=== PATIENT | male | born 1930 | race Caucasian/White ===

== ENCOUNTER 2016-11-16 17:35 | Inpatient (IN) | payer MEDICARE, BC ==
[~2016-11-16] VITALS: Ht 177.8 cm; Wt 66.0 kg
[2016-11-16] MEDS ORDERED: SODIUM CHLORIDE 0.9% 1L BAG IV* STA (17:59)
[2016-11-16 18:36] LABS: ADD SCAN DIFF NO
[2016-11-16 18:38] LABS: BASOPHIL # 0.1 10^3/ul (0.0-0.1); BASOPHILS % 0.8 % (0.0-2.0); EOSINOPHILS # 0.2 10^3/ul (0.0-0.5); EOSINOPHILS % 1.6 % (0.0-7.0); HEMATOCRIT 39.2 % (42.0-52.0); HEMOGLOBIN 12.8 g/dl (14.0-18.0); LYMPHOCYTES # 1.6 10^3/ul (0.8-2.9); LYMPHOCYTES % 15.7 % (15.0-51.0); MEAN CORPUSCULAR HEMOGLOBIN 30.3 pg (29.0-33.0); MEAN CORPUSCULAR HGB CONC 32.7 g/dl (32.0-37.0); MEAN CORPUSCULAR VOLUME 92.7 fl (82.0-101.0); MONOCYTE # 0.8 10^3/ul (0.3-0.9); NEUTROPHIL # 7.3 10^3/ul (1.6-7.5); NEUTROPHILS % 73.6 % (39.0-77.0); PLATELET COUNT 302 10^3/UL (140-415); RED BLOOD COUNT 4.23 10^6/ul (4.70-6.10); RED CELL DISTRIBUTION WIDTH 13.5 % (11.5-14.5); WHITE BLOOD COUNT 9.9 10^3/ul (4.8-10.8)
[2016-11-16 18:39] LABS: ADD UMIC NO; URINE BILIRUBIN (Dip) NEGATIVE (NEGATIVE); URINE BLOOD (Dip) NEGATIVE (NEGATIVE); URINE COLOR LT. YELLOW (YELLOW); URINE GLUCOSE (Dip) NEGATIVE (NEGATIVE); URINE KETONES (Dip) 15 (NEGATIVE); URINE LEUKOCYTE ESTERASE (Dip) NEGATIVE (NEGATIVE); URINE NITRITE (Dip) NEGATIVE (NEGATIVE); URINE TOTAL PROTEIN (Dip) NEGATIVE (NEGATIVE); URINE UROBILINOGEN (Dip) 0.2 E.U./dL (0.1-1.0)
--- NOTE | 2016-11-16 18:44 | RADRPT ---
PROCEDURE: XR Chest. CLINICAL INDICATION: Shortness of breath. Sepsis TECHNIQUE: A single portable view of the chest was obtained. COMPARISON: None FINDINGS: The aorta is tortuous and atherosclerotic. The cardiomediastinal silhouette is otherwise within nor mal limits. Hyperinflation is seen. No dense consolidation or pleural effusion is seen. Mild bibasi lar atelectasis is seen. The soft tissues and osseous structures demonstrate benign age related sen escent changes. IMPRESSION: Hyperinflation. Mild bibasilar atelectasis. RPTAT: HPNM Physician Collins Date Time Electronically viewed and signed by Physician Collins on 11/16/2016 18:44 /
[2016-11-16 18:53] LABS: INR 0.93; PROTIME 12.5 Sec (12.2-14.2)
[2016-11-16 18:54] LABS: PARTIAL THROMBOPLASTIN TIME 34.6 Sec (25.0-35.0)
[2016-11-16 18:58] LABS: ALANINE AMINOTRANSFERASE 25 IU/L (13-69); ALBUMIN 4.3 g/dl (3.3-4.9); ALBUMIN/GLOBULIN RATIO 1.19; ALKALINE PHOSPHATASE 134 IU/L (42-121); ANION GAP 14 (8-16); ASPARTATE AMINO TRANSFERASE 31 IU/L (15-46); BILIRUBIN,INDIRECT 0.9 mg/dl (0-1.1); BILIRUBIN,TOTAL 0.9 mg/dl (0.2-1.3); BLOOD UREA NITROGEN 27 mg/dl (7-20); CALCIUM 10.5 mg/dl (8.4-10.2); CARBON DIOXIDE 27 mmol/L (21-31); CHLORIDE 104 mmol/L (97-110); GLUCOSE 96 mg/dl (70-220); POTASSIUM 4.4 mmol/L (3.5-5.1); SODIUM 141 mmol/L (135-144); TOTAL PROTEIN 7.9 g/dl (6.1-8.1)
[2016-11-16 19:11] LABS: TROPONIN-I < 0.012 ng/ml (0.00-0.12)
[2016-11-16] MEDS ORDERED: SOD CHLORIDE 0.9% 1,000 ML IV SCH (19:16)
--- NOTE | 2016-11-16 19:19 | ERA ---
ER Documentation Chief Complaint Date/Time DATE: 11/16/16 TIME: 19:18 Chief Complaint increased weakness away from baseline per facility HPI This 86-year-old male presents to the emergency room by ambulance for increased weakness, decreased appetite, and advanced dementia. History is unobtainable from the patient secondary to his clinical condition. According to his who is at bedside this patient has severe dementia and she has been trying to secure the patient at home. She states that the patient has been declining cognitively and has had recent hallucinations. She states that she is no longer able to take care of him and she has no support system at home to help her out. The patient's is very pleasant elderly female who is concerned for her 's well-being and brought the patient in for evaluation. ROS All systems reviewed and are negative except as per history of present illness. Medications Home Meds No Active Prescriptions or Reported Meds Allergies Allergies: Coded Allergies: aspirin (Unverified Allergy, Unknown, 11/16/16) PMhx/Soc History of Surgery: Yes (bilateral tkr, hernia's x 3 ) Anesthesia Reaction: No Hx Neurological Disorder: No Hx Respiratory Disorders: No Hx Cardiac Disorders: No Hx Psychiatric Problems: No Hx Miscellaneous Medical Probl: Yes (alzheimer's) Hx Alcohol Use: No (previous user) Hx Substance Use: No Hx Tobacco Use: Yes Smoking Status: Former smoker Physical Exam Vitals Vital Signs Date Time Temp Pulse Resp B/P Pulse Ox O2 Delivery O2 Flow Rate FiO2 11/16/16 17:54 98.0 74 18 187/107 96 Physical Exam INITIAL VITAL SIGNS: Reviewed by me GENERAL: The patient is well developed and appropriate for usual state of health in no apparent distress HEENT: Dry mucous membranes pupils equal, round, and reactive to light. EOMI. There is no scleral icterus. NECK: C-spine is soft and supple, there is no meningismus. There is no cervical lymphadenopathy. LUNGS: Clear to auscultation bilaterally. There are no rales, wheezes or rhonchi. HEART: Regular rate and rhythm, no murmurs, clicks, rubs or gallops. ABDOMEN: Soft, non-tender, non-distended. There are bowel sounds in all four quadrants. No rebound or guarding. EXTREMITIES: There is no peripheral cyanosis or edema. No focal swelling or erythema. NEUROLOGICAL: The patient moves all four extremities with 5/5 strength. Cranial nerves II - XII are intact.Alert and oriented to person and place SKIN: There is no apparent rash or petechiae. HEME/LYMPHATIC: There is no evidence of excessive bruising or lymphedema. PSYCHIATRIC: The patient does not appear anxious or depressed. Result Diagram: 11/16/16181411/16/161814 Results 24 hrs Laboratory Tests Test 11/16/16 18:00 11/16/16 18:15 Urine Color LT. YELLOW Urine Clarity CLEAR Urine pH 5.5 Urine Specific Neola 1.020 Urine Ketones 15 Urine Nitrite NEGATIVE Urine Bilirubin NEGATIVE Urine Urobilinogen 0.2 E.U./dL Urine Leukocyte Esterase NEGATIVE Urine Hemoglobin NEGATIVE Urine Glucose NEGATIVE% Urine Total Protein NEGATIVE White Blood Count 9.910^3/ul Red Blood Count 4.2310^6/ul Hemoglobin 12.8g/dl Hematocrit 39.2% Mean Corpuscular Volume 92.7fl Mean Corpuscular Hemoglobin 30.3pg Mean Corpuscular Hemoglobin Concent 32.7g/dl Red Cell Distribution Width 13.5% Platelet Count 41754^3/UL Mean Platelet Volume 10.0fl Neutrophils % 73.6% Lymphocytes % 15.7% Monocytes % 8.0% Eosinophils % 1.6% Basophils % 0.8% Nucleated Red Blood Cells % 0.0/100WBC Neutrophils # 7.310^3/ul Lymphocytes # 1.610^3/ul Monocytes # 0.810^3/ul Eosinophils # 0.210^3/ul Basophils # 0.110^3/ul Nucleated Red Blood Cells # 0.010^3/ul Prothrombin Time 12.5Sec Prothrombin Time Ratio 1.0 INR International Normalized Ratio 0.93 Activated Partial Thromboplast Time 34.6Sec Sodium Level 141mmol/L Potassium Level 4.4mmol/L Chloride Level 104mmol/L Carbon Dioxide Level 27mmol/L Anion Gap 14 Blood Urea Nitrogen 27mg/dl Creatinine 0.70mg/dl Glucose Level 96mg/dl Lactic Acid Level 1.3mmol/L Calcium Level 10.5mg/dl Total Bilirubin 0.9mg/dl Direct Bilirubin 0.00mg/dl Indirect Bilirubin 0.9mg/dl Aspartate Amino Transf (AST/SGOT) 31IU/L Alanine Aminotransferase (ALT/SGPT) 25IU/L Alkaline Phosphatase 134IU/L Troponin I < 0.012ng/ml Total Protein 7.9g/dl Albumin 4.3g/dl Globulin 3.60g/dl Albumin/Globulin Ratio 1.19 Current Medications Medications (Trade) Dose Ordered Sig/Lawson Route PRN Reason Start Time Stop Time Status Last Admin Dose Admin Sodium Chloride 2250 ml 2,250 ml BOLUS OVER 2 HOURS STAT IV* 11/16/16 17:59 11/16/16 18:00 DC 11/16/16 18:28 Sodium Chloride (NS) 1,000 ml @ 80 mls/hr [id number] IV 11/16/16 19:16 11/17/16 07:45 Ondansetron HCl (Zofran Inj) 4 mg BRIDGE ORDER PRN IV NAUSEA AND/OR VOMITING 11/16/16 19:30 11/17/16 19:29 Acetaminophen (Tylenol Tab) 650 mg ER BRIDGE PRN PO MILD PAIN/FEVER 11/16/16 19:30 11/17/16 19:29 Procedures/MDM EKG: Rate/Rhythm: [Normal Sinus Rhythm] QRS, ST, T-waves: [No changes consistent w/ acute ischemia] Impression: [No evidence of ischemia or arrhythmia] Chest X-ray 1V Interpreted by me: Soft Tissue: No acute abnormalities Bones: No acute abnormalities Mediastinum/Cardiac Silhouette/Lungs: [No acute abnormalities] This 86-year-old male presents to the emergency room after being brought in by ambulance from his home for evaluation of increased weakness, decreased cognitive function, and hallucinations. 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 She states that over the past week this patient has been hallucinating, has not been any food, she states that she was concerned because she is no longer able to take care of him. She does not have a support system at home and has no family members to help out. When I evaluated this patient he was alert and oriented to person and place only. The patient did have urine on himself, we cleaned the patient and I feel this patient will need placement in a snf or custodial facility. I have spoken with the in regards to this and she states that she is in agreement that she can no longer manage his patient's care at home. This patient will be placed in for admission at this time to her panel physician, Dr. monson Departure Diagnosis: Primary Impression: Advanced dementia Additional Impressions: Generalized weakness Normocytic anemia Prerenal azotemia Failure to thrive in adult Condition: Stable SO BENZ DO November 16, 2016 19:19
[2016-11-16] MEDS ORDERED: ACETAMINOPHEN 325 MG TAB PO PRN (19:30)
[2016-11-16] MEDS ORDERED: ONDANSETRON 4 MG INJ IV PRN ×2 (19:30→23:00)
[2016-11-16 20:25] VITALS: TEMP 97.7
[2016-11-16 21:11] VITALS: BMI 21.5
[2016-11-16 21:14] VITALS: BP 134/85; RESP 19
[2016-11-16 21:47] VITALS: Ht 177.8 cm; Wt 66.0 kg
[2016-11-16] MEDS ORDERED: NACL 0.9% 3 ML SYG IV SCH (23:00)
[2016-11-16] MEDS ORDERED: ACETAMINOPHEN 650 MG SUPP PR PRN (23:00)
--- NOTE | 2016-11-16 23:21 | HP ---
Date/Time of Note Date/Time of Note DATE: 11/16/16 TIME: 23:09 Assessment/Plan VTE Prophylaxis VTE Prophylaxis Intervention: LMWH Assessment/Plan Chief Complaint/Hosp Course This is a 86-year-old male being admitted to the [facility] floor for: #1 failure to thrive: Likely secondary to worsening dementia/Alzheimer's for the last 10 years. Patient has been under the care of his as he is not able to perform all his ADLs by himself. Over the last few days does report that he is also been hallucinating. There are no active signs of any infection at this point. She denies him having any fevers. Denies any abnormal smell in his urine. Chest x-ray is within normal values. At the current time the laboratory values all appear within normal values. UA is within normal values. Urine culture was sent. Will provide the patient IV fluid hydration at this time. We will keep the patient n.p.o. until he can pass swallow eval. dietary consult. does state that he normally does not have any issues with eating but he has had a decreased appetite over the last few days. We will also consult case management and social work to assist us in the family in finding placement for the patient as it is difficult for the patient to perform his ADLs and for his to manage his care. We will also consider palliative care consult for any further input. #2 Alzheimer's: It has been ongoing and worsening over the last 10 years. Patient is unable to perform his ADLs by himself. He is requiring the assistance of his for the last 10 years. Please see #1 #3 DVT and GI prophylaxis Lovenox, famotidine #4 CODE STATUS: DNR. Patient's son Rich who is the POA was present as well at the bedside he does state that the patient has an advanced directive where he stated he would like to be DNR. They will bring in the paperwork as well. Problems: HPI/ROS Admit Date/Time Admit Date/Time November 16, 2016 at 19:17 Hx of Present Illness Chief complaint: Increased weakness, decreased appetite This 86-year-old male presents to the emergency room by ambulance for increased weakness, decreased appetite, and advanced dementia. History is unobtainable from the patient secondary to his clinical condition. According to his who is at bedside this patient has severe dementia and she has been trying to secure the patient at home. She states that the patient has been declining cognitively and has had recent hallucinations. She states that she is no longer able to take care of him and she has no support system at home to help her out. The patient's is very pleasant elderly female who is concerned for her 's well-being and brought the patient in for evaluation. Allergies: Aspirin Medications: None ROS Subjective hx not possible: pt non-verbal, other (Secondary to clinical condition) PMH/Family/Social Past Medical History Alzheimer's Past Surgical History Bilateral knee replacement, hernia repair Social History Alcohol Use: other (Patient was a former drinker 10 years ago) Smoking Status: Former smoker Exam/Review of Systems Vital Signs Vitals Vital Signs Date Time Temp Pulse Resp B/P Pulse Ox O2 Delivery O2 Flow Rate FiO2 11/16/16 21:14 97.5 87 19 134/85 91 11/16/16 20:25 Room Air Exam Exam General: Patient is a elderly patient sleeping in bed easily arousable. Does not appear in acute distress HEENT: Atraumatic, normocephalic. The pupils are equal, round and reactive. Extraocular motor are intact Neck: Supple with full range of motion. No rigidity or meningismus Chest: Nontender Lungs: Clear to auscultation bilaterally no crackles rales or wheezing Heart: Normal S1-S2, Regular rhythm and rate. Abdomen: Soft , nontender, nondistended , bowel sounds are present. No guarding no rebound tenderness , No masses or organomegaly. Extremities: Normal to inspection, no edema no cyanosis Neurologic: Patient is alert and oriented 2, he has baseline confusion secondary to his underlying dementia according to his . Additional Comments PROCEDURE: XR Chest. CLINICAL INDICATION: Shortness of breath. Sepsis TECHNIQUE: A single portable view of the chest was obtained. COMPARISON: None FINDINGS: The aorta is tortuous and atherosclerotic. The cardiomediastinal silhouette is otherwise within normal limits. Hyperinflation is seen. No dense consolidation or pleural effusion is seen. Mild bibasilar atelectasis is seen. The soft tissues and osseous structures demonstrate benign age related senescent changes. IMPRESSION: Hyperinflation. Mild bibasilar atelectasis. Labs Result Diagram: 5/17/17 1815 5/17/17 1815 Medications Medications Current Medications Sodium Chloride 1,000 ml @ 80 mls/hr [id number] IV Last administered on t 21:00; Admin Dose 80 MLS/HR; Start 11/16/16 at 19:16; Stop 11/17/16 at 07: 45 Sodium Chloride (NS) 1,000 ml @ 70 mls/hr [id number] IV ; Start 11/16/16 at 22:56 ; Status UNV Ondansetron HCl (Zofran Inj) 4 mg Q6H PRN IV NAUSEA AND/OR VOMITING; Start at 23:00; Status UNV Acetaminophen (Tylenol Supp) 650 mg Q6H PRN [place] PAIN LEVEL 1-3 OR FEVER; Start 11/16/16 at 23:00; Status UNV Famotidine (Pepcid Iv) 20 mg Q12 IV ; Start 11/16/16 at 23:00; Status UNV Enoxaparin Sodium (Lovenox) 40 mg DAILY SC ; Start 11/17/16 at 09:00; Status UNV NEPTALI OLMSTEAD November 16, 2016 23:19
[2016-11-16] MEDS: SOD CHLORIDE 0.9% 1,000 ML IV SCH (23:22)
[2016-11-16] MEDS: FAMOTIDINE 20 MG INJ IV SCH (23:26)
[2016-11-17 05:06] LABS: ADD SCAN DIFF NO
[2016-11-17 05:12] LABS: BASOPHIL # 0.1 10^3/ul (0.0-0.1); EOSINOPHILS # 0.2 10^3/ul (0.0-0.5); EOSINOPHILS % 2.3 % (0.0-7.0); HEMATOCRIT 36.8 % (42.0-52.0); HEMOGLOBIN 12.1 g/dl (14.0-18.0); LYMPHOCYTES # 1.6 10^3/ul (0.8-2.9); LYMPHOCYTES % 17.6 % (15.0-51.0); MEAN CORPUSCULAR HEMOGLOBIN 30.3 pg (29.0-33.0); MEAN CORPUSCULAR HGB CONC 32.9 g/dl (32.0-37.0); MEAN PLATELET VOLUME 10.2 fl (7.4-10.4); MONOCYTE # 0.8 10^3/ul (0.3-0.9); MONOCYTES % 9.4 % (0.0-11.0); NEUTROPHIL # 6.2 10^3/ul (1.6-7.5); NEUTROPHILS % 69.4 % (39.0-77.0); PLATELET COUNT 273 10^3/UL (140-415); RED CELL DISTRIBUTION WIDTH 13.3 % (11.5-14.5); WHITE BLOOD COUNT 8.9 10^3/ul (4.8-10.8)
[2016-11-17 05:58] LABS: POTASSIUM 3.7 mmol/L (3.5-5.1)
[2016-11-17 06:00] LABS: CREATININE 0.63 mg/dl (0.61-1.24)
[2016-11-17 06:01] LABS: CALCIUM 9.3 mg/dl (8.4-10.2)
[2016-11-17 08:40] VITALS: BP 164/71; RESP 18
[2016-11-17] MEDS: FAMOTIDINE 20 MG INJ IV SCH ×2 (09:37→20:28)
[2016-11-17] MEDS: ENOXAPARIN 40 MG/0.4 ML SYG SC SCH (09:37)
[2016-11-17] MEDS: SOD CHLORIDE 0.9% 1,000 ML IV SCH ×3 (09:48→09:52)
[2016-11-17] MEDS ORDERED: hydrALAzine 20 MG INJ IV PRN (10:00)
--- NOTE | 2016-11-17 11:20 | PN ---
DATE: 11/17/2016 SUBJECTIVE DATA: The patient remains pleasantly confused. Blood pressure slightly on the higher side. OBJECTIVE DATA: VITAL SIGNS: Temperature 97.2, pulse rate 67, respiratory rate 18, blood pressure 164/71, oxygen saturation 98% on room air. GENERAL: This is an elderly male lying in bed in no apparent distress. HEENT: Head normocephalic and atraumatic. Eyes: Anicteric sclerae. Conjunctivae clear. ENT: Nasal septum is midline. Oral mucosa is dry. NECK: Supple. No JVD noticed. RESPIRATORY: Bilaterally diminished breath sounds. No adventitious breath sounds heard. No use of accessory muscles of respiration. CARDIAC: Regular rate and rhythm. S1 and S2. ABDOMEN: Soft, nontender and nondistended. Bowel sounds positive in all 4 quadrants. GENITOURINARY: The patient has a Bass catheter in place. EXTREMITIES: No cyanosis, no clubbing. Bilateral diminished pedal pulses. Bilateral toenails onychomycosis. NEUROLOGIC: The patient is awake and alert. Oriented to himself. LABORATORY AND DIAGNOSTIC DATA: WBC 8.9, hemoglobin 12.1, hematocrit 36.8, platelet count 273. Sodium 141, potassium 3.7, chloride 105, carbon dioxide 25 , anion gap 15, BUN 20, creatinine 0.63, glucose 74, calcium 9.3. ASSESSMENT AND PLAN: 1. Essential hypertension. We will start the patient on p.r.n. antihypertensives for any systolic blood pressure readings greater than 160 mmHg. The patient will also be started on routine antihypertensives. 2. Failure to thrive. Most probably secondary to worsening dementia. The patient is unable perform all his activities of daily living. The patient needs placement. The patient is currently a DNR. 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 3. Alzheimer's disease. Continue frequent reorientation. Continue close monitoring. 4. Normocytic normochromic anemia. Etiology unclear. Most probably anemia of chronic disease. We will monitor hemoglobin and hematocrit closely. We will do an iron panel on this patient. 5. Fluid, electrolytes and nutrition. The patient will be started on a mechanical soft diet. 6. Deep venous thrombosis prophylaxis with subcutaneous Lovenox. 7. Gastrointestinal prophylaxis. Histamine 2 receptor blockers. PLAN: Start antihypertensives. Await case management and web content & social media manager input. Case discussed with Dr. Montanez. ENRIQUE MONTANEZ MD AM/PASCUAL Conf#: [id number] DID#: [id number] MTDD
[2016-11-17 11:48] LABS: IRON 94 ug/dl (35-150)
[2016-11-17 11:59] LABS: TOTAL IRON BINDING CAPACITY 219 ug/dl (241-421)
[2016-11-17] MEDS ORDERED: VANCOMYCIN IV PER PHARMACY XX SCH (12:30)
[2016-11-17] MEDS ORDERED: VANCOMYCIN 1.75 GM in NS 500 ML IVPB SCH (14:00)
[2016-11-17 20:14] VITALS: BP 176/83; RESP 19
[2016-11-17] MEDS: NIFEdipine (XL) 30 MG TAB PO SCH (20:28)
[2016-11-17 23:53] VITALS: BP 126/73; PULSE 59
[2016-11-18] MEDS: SOD CHLORIDE 0.9% 1,000 ML IV SCH (06:00)
[2016-11-18 06:03] LABS: ADD SCAN DIFF NO
[2016-11-18 06:07] LABS: BASOPHIL # 0.1 10^3/ul (0.0-0.1); BASOPHILS % 0.7 % (0.0-2.0); EOSINOPHILS # 0.3 10^3/ul (0.0-0.5); HEMATOCRIT 36.7 % (42.0-52.0); HEMOGLOBIN 12.3 g/dl (14.0-18.0); LYMPHOCYTES # 2.4 10^3/ul (0.8-2.9); LYMPHOCYTES % 19.4 % (15.0-51.0); MEAN CORPUSCULAR HEMOGLOBIN 30.3 pg (29.0-33.0); MEAN CORPUSCULAR HGB CONC 33.5 g/dl (32.0-37.0); MEAN CORPUSCULAR VOLUME 90.4 fl (82.0-101.0); MEAN PLATELET VOLUME 10.2 fl (7.4-10.4); MONOCYTE # 1.2 10^3/ul (0.3-0.9); MONOCYTES % 9.8 % (0.0-11.0); NEUTROPHIL # 8.3 10^3/ul (1.6-7.5); NEUTROPHILS % 67.8 % (39.0-77.0); PLATELET COUNT 298 10^3/UL (140-415); RED BLOOD COUNT 4.06 10^6/ul (4.70-6.10); RED CELL DISTRIBUTION WIDTH 13.3 % (11.5-14.5); WHITE BLOOD COUNT 12.2 10^3/ul (4.8-10.8)
[2016-11-18 06:45] LABS: CHOL/HDL RATIO 1.9 RATIO; MAGNESIUM 1.8 mg/dl (1.7-2.5); PHOSPHORUS 2.9 mg/dl (2.5-4.9)
[2016-11-18 06:46] LABS: CALCIUM 9.4 mg/dl (8.4-10.2); CREATININE 0.66 mg/dl (0.61-1.24); POTASSIUM 3.8 mmol/L (3.5-5.1)
[2016-11-18] MEDS ORDERED: HALOPERIDOL 5 MG INJ IM ONE (07:30)
[2016-11-18 08:00] VITALS: BP 127/77; PULSE 80; RESP 16
[2016-11-18] MEDS: FAMOTIDINE 20 MG INJ IV SCH ×2 (08:50→21:10)
[2016-11-18] MEDS: ENOXAPARIN 40 MG/0.4 ML SYG SC SCH (09:00)
[2016-11-18] MEDS: NIFEdipine (XL) 30 MG TAB PO SCH ×2 (09:36→21:12)
--- NOTE | 2016-11-18 11:21 | PN ---
Date/Time of Note Date/Time of Note DATE: 11/18/16 TIME: 11:21 Assessment/Plan VTE Prophylaxis VTE Prophylaxis Intervention: LMWH Lines/Catheters IV [facility] ([facility] Peripheral IV Urinary Cath still in place: Yes Reason Cath still needed: other (indicate) Assessment/Plan Chief Complaint/Hosp Course 1. Essential hypertension. Continue antihypertensives including as needed antihypertensives for systolic blood pressure readings greater than 160 mercury. 2. Failure to thrive. Most probably secondary to worsening dementia. The patient needs placement. 3. Alzheimer's disease. Continue frequent reorientation. Continue close monitoring. 4. Normocytic normochromic anemia. Etiology unclear. Most probably anemia of chronic disease. We will monitor hemoglobin and hematocrit closely. 5. Sepsis with underlying gram-positive bacteremia. No evidence of any septic shock. Continue antibiotics per infectious diseases on the case 6. Fluid, electrolytes and nutrition. The patient will be continued on a mechanical soft diet. 7. Deep venous thrombosis prophylaxis with subcutaneous Lovenox. 8. Gastrointestinal prophylaxis. Histamine 2 receptor blockers. PLAN: Continue antibiotics. Will order a one-to-one sitter. Await case management and social work job titles input. Case discussed with Dr. Montanez. Problems: Subjective 24 Hr Interval Summary Free Text/Dictation The patient was very agitated and combative in the morning. The patient got Haldol with improvement in confused behavior. Exam/Review of Systems Vital Signs Vitals Vital Signs Date Time Temp Pulse Resp B/P Pulse Ox O2 Delivery O2 Flow Rate FiO2 11/18/16 08:00 80 127/77 91 Room Air 11/18/16 08:00 16 11/17/16 20:14 98.5 11/17/16 08:00 2.0 Intake and Output 11/17/16 11/17/16 11/18/16 15:00 23:00 07:00 Intake Total 850 ml 1000 ml 900 ml Output Total 900 ml 900 ml Balance 850 ml 100 ml 0 ml Exam GENERAL: This is an elderly male lying in bed in no apparent distress. HEENT: Head normocephalic and atraumatic. Eyes: Anicteric sclerae. Conjunctivae clear. ENT: Nasal septum is midline. Oral mucosa is dry. NECK: Supple. No JVD noticed. RESPIRATORY: Bilaterally diminished breath sounds. No adventitious breath sounds heard. No use of accessory muscles of respiration. CARDIAC: Regular rate and rhythm. S1 and S2. ABDOMEN: Soft, nontender and nondistended. Bowel sounds positive in all 4 quadrants. GENITOURINARY: The patient has a Bass catheter in place. EXTREMITIES: No cyanosis, no clubbing. Bilateral diminished pedal pulses. Bilateral toenails onychomycosis. NEUROLOGIC: The patient is awake and alert. Oriented to himself. Results Result Diagram: 11/18/16 0530 11/18/16 0530 Results 24 hrs Laboratory Tests Test 11/18/16 05:30 11/18/16 05:31 White Blood Count 12.2 #H Red Blood Count 4.06 L Hemoglobin 12.3 L Hematocrit 36.7 L Mean Corpuscular Volume 90.4 Mean Corpuscular Hemoglobin 30.3 Mean Corpuscular Hemoglobin Concent 33.5 Red Cell Distribution Width 13.3 Platelet Count 298 Mean Platelet Volume 10.2 Neutrophils % 67.8 Lymphocytes % 19.4 Monocytes % 9.8 Eosinophils % 2.0 Basophils % 0.7 Nucleated Red Blood Cells % 0.0 Neutrophils # 8.3 H Lymphocytes # 2.4 Monocytes # 1.2 H Eosinophils # 0.3 Basophils # 0.1 Nucleated Red Blood Cells # 0.0 Sodium Level 138 Potassium Level 3.8 Chloride Level 108 Carbon Dioxide Level 23 Anion Gap 11 Blood Urea Nitrogen 18 Creatinine 0.66 Glucose Level 97 Calcium Level 9.4 Phosphorus Level 2.9 Magnesium Level 1.8 Triglycerides Level 71 Cholesterol Level 129 LDL Cholesterol, Calculated 50 HDL Cholesterol 65 Cholesterol/HDL Ratio 1.9 Medications Medications Current Medications Sodium Chloride (NS) 1,000 ml @ 70 mls/hr [id number] IV Last administered on 11/18 06:00; Admin Dose 70 MLS/HR; Start 11/16/16 at 22:56 Ondansetron HCl (Zofran Inj) 4 mg Q6H PRN IV NAUSEA AND/OR VOMITING; Start at 23:00 Acetaminophen (Tylenol Supp) 650 mg Q6H PRN [place] PAIN LEVEL 1-3 OR FEVER; Start 11/16/16 at 23:00 Famotidine (Pepcid Iv) 20 mg Q12 IV Last administered on 11/18/16 08:50; Admin Dose 20 MG; Start 11/16/16 at 23:00 Enoxaparin Sodium (Lovenox) 40 mg DAILY SC Last administered on 11/17/16 09:37 ; Admin Dose 40 MG; Start 11/17/16 at 09:00 Hydralazine HCl (Apresoline) 10 mg Q6H PRN IV SBP>160; Start 11/17/16 at 10:00 Nifedipine 30 mg 30 mg BID PO Last administered on 11/18/16 09:36; Admin Dose 30 MG; Start 11/17/16 at 21:00 Vancomycin HCl/ Sodium Chloride (Vancocin/NS) 250 ml @ 83.333 mls/ hr Q24H IVPB ; Start 11/18/16 at 14:00 ENRIQUE SCHUSTER NP November 18, 2016 11:21
[2016-11-18] MEDS ORDERED: HALOPERIDOL 5 MG INJ IV PRN (11:30)
[2016-11-18] MEDS ORDERED: HALOPERIDOL 1 MG TAB PO PRN (12:00)
[2016-11-18] MEDS ORDERED: VANCOMYCIN 1.25 GM in SOD CHLORIDE 0.9% 250 ML IVPB SCH (14:00)
[2016-11-18] MEDS ORDERED: HALOPERIDOL 5 MG INJ IM PRN (17:30)
[2016-11-18 20:25] VITALS: BP 122/80; RESP 20
[2016-11-18] MEDS: DONEPEZIL 5 MG TAB PO SCH (21:12)
[2016-11-19] MEDS: SOD CHLORIDE 0.9% 1,000 ML IV SCH ×3 (00:13→22:26)
[2016-11-19 05:08] LABS: BASOPHILS % 0.4 % (0.0-2.0); EOSINOPHILS # 0.1 10^3/ul (0.0-0.5); EOSINOPHILS % 0.8 % (0.0-7.0); HEMOGLOBIN 12.6 g/dl (14.0-18.0); LYMPHOCYTES # 1.5 10^3/ul (0.8-2.9); LYMPHOCYTES % 15.4 % (15.0-51.0); MEAN CORPUSCULAR HEMOGLOBIN 30.4 pg (29.0-33.0); MEAN CORPUSCULAR HGB CONC 34.1 g/dl (32.0-37.0); MEAN CORPUSCULAR VOLUME 89.4 fl (82.0-101.0); MEAN PLATELET VOLUME 10.4 fl (7.4-10.4); MONOCYTE # 0.7 10^3/ul (0.3-0.9); MONOCYTES % 7.6 % (0.0-11.0); NEUTROPHIL # 7.1 10^3/ul (1.6-7.5); NEUTROPHILS % 75.5 % (39.0-77.0); PLATELET COUNT 291 10^3/UL (140-415); RED BLOOD COUNT 4.14 10^6/ul (4.70-6.10); RED CELL DISTRIBUTION WIDTH 13.2 % (11.5-14.5); WHITE BLOOD COUNT 9.5 10^3/ul (4.8-10.8)
[2016-11-19 05:09] LABS: ADD SCAN DIFF NO
[2016-11-19 05:36] LABS: POTASSIUM 3.4 mmol/L (3.5-5.1)
[2016-11-19 05:38] LABS: CREATININE 0.63 mg/dl (0.61-1.24)
[2016-11-19 05:39] LABS: CALCIUM 9.5 mg/dl (8.4-10.2)
[2016-11-19 05:54] LABS: MAGNESIUM 1.8 mg/dl (1.7-2.5)
--- NOTE | 2016-11-19 07:02 | PN ---
DATE: 11/18/2016 SUBJECTIVE: No acute changes overnight. The patient is awake, confused. at bedside. No feve rs. He is in no distress. WBC today 12.2, platelets 298. No shift, no bands. BUN 18, creatinine 0.66. MICROBIOLOGY: Blood culture growing gram-positive cocci in chains, 2 sets on admission. Urine cult ure negative. Repeat blood culture pending. DIAGNOSTICS: Chest x-ray on admission revealed mild bibasilar atelectasis. ANTIMICROBIALS: The patient is on vancomycin. PHYSICAL EXAMINATION: GENERAL: This is a fragile, chronically ill-appearing, elderly man who is awake, confused, in no di stress. HEENT: Head atraumatic, normocephalic. Sclerae anicteric. Buccal mucosa dry. NECK: Supple, trachea midline. CHEST: Rise symmetrical. Breath sounds diminished to bases. HEART: S1, S2. ABDOMEN: Soft, bowel tones present. EXTREMITIES: With trace edema. ASSESSMENT: 1. Bacteremia, possibly secondary to a pulmonary source. 2. Acute encephalopathy, likely toxic metabolic. 3. Dementia of Alzheimer's disease. 4. Anemia. 5. Hypertension. PLAN: The patient remains clinically stable. He is now DNR status. Cultures are still pending. He is on appropriate antimicrobials. We will order chest x-ray in a.m. May need 2D echo. Dictated By: LEATHA HAYNES PRODUCT MARKETING INTERN for ALLEN SUAREZ/PASCUAL Conf#: [id number] DID#: [id number]
[2016-11-19 07:10] VITALS: BP 200/77; RESP 18
--- NOTE | 2016-11-19 07:39 | CONS ---
DATE OF ADMISSION: 11/16/2016 DATE OF CONSULTATION: INFECTIOUS DISEASE CONSULTATION I am seeing this patient for Dr. Edwin Noel. This is at the request of Dr. Burt Ford. HISTORY OF PRESENT ILLNESS: The patient is an 86-year-old white male who was living at home, who wa s admitted on 11/16/2016 with a chief complaint of increased weakness, decreased appetite and increa sed dementia. His white count on arrival was 9900. It subsequently has risen to 12,600. His monoc ytes were 8 on admission and 10 today. He had 2 positive blood cultures for gram-positive streptoco cci in chains. The chest x-ray was negative. Urinalysis was negative, but with a specific gravity of 1.020, pH 5.5. He had a serum albumin of 4.3 and normal liver function tests. There is a decrea sed total iron binding capacity, with a fairly normal serum iron. ALLERGIES: THE PATIENT HAS KNOWN ALLERGIES LISTED. PAST MEDICAL HISTORY: 1. Dementia. 2. Total knee replacements bilaterally. 3. Hernia repair x3. MEDICATION: Includes: 1. Donepezil. 2. Haldol 3. Nifedipine. 4. Pepcid. He has begun treatment with intravenous vancomycin. Currently he is on the medical floor in no acut e distress, in a bed with the head of the bed elevated at 45 degrees, with a sitter present. The pa tient has a Bass catheter in place, draining light scarlet-colored urine. The patient is unable to give a good history and seems to have trouble concentrating. PHYSICAL EXAMINATION: VITAL SIGNS: His blood pressure is 127/77, with a pulse of 80, normal respirations of 16, and pulse oximetry of 91 on room air, previously was 98 on room air. HEENT: The pupils are equal, round, and reactive to light. The mouth has moist mucous membranes. NECK: There is no jugular venous distention at his present elevation. CHEST: Clear, but there is an expiratory low-pitched rub over the left anterior chest. There are n o intercostal inspiratory contractions. HEART: Regular, without gallop, murmur or rub. ABDOMEN: Soft. There are no palpable organs or masses. EXTREMITIES: There is a Bass catheter, as previously mentioned. There is no pedal edema. INITIAL IMPRESSION: 1. Streptococcal bacteremia, probably Streptococcus pneumoniae. 2. Leukocytosis. 3. Hypertension. 4. Dementia. RECOMMENDATION: I would continue vancomycin that will cover all except for vancomycin-resistant Ent erococcus, to which he is not entitled by his history. I would recommend removing the Bass cathete r as soon as possible before we have another problem. Dictated By: Ziggy ARREOLA/NTS Conf#: [id number] DID#: [id number]
[2016-11-19 07:44] VITALS: BP 122/88; RESP 20
[2016-11-19] MEDS: NIFEdipine (XL) 30 MG TAB PO SCH ×2 (09:06→22:05)
[2016-11-19] MEDS: FAMOTIDINE 20 MG INJ IV SCH ×2 (09:06→22:05)
[2016-11-19] MEDS: ENOXAPARIN 40 MG/0.4 ML SYG SC SCH (09:07)
[2016-11-19 09:20] VITALS: PULSE 89
--- NOTE | 2016-11-19 09:53 | RADRPT ---
PROCEDURE: XR Chest. CLINICAL INDICATION: Sepsis TECHNIQUE: A single AP view of the chest was obtained. COMPARISON: None. FINDINGS: No focal airspace opacification, pleural effusion or pneumothorax is seen. There is a 5 mm granuloma in the right lower lobe. The cardiomediastinal silhouette is upper limits of normal in size. Calci fications are seen within the aortic arch. The osseous structures demonstrate senescent changes. IMPRESSION: 1. No radiographic evidence of acute cardiopulmonary disease. 2. Aortic atherosclerosis. 3. 5 mm right lower lobe granuloma. RPTAT: HH .Bernarda Godoy MD, Date Time Electronically viewed and signed by .Bernarda Godoy MD, on 11/19/2016 09:53 .G/
--- NOTE | 2016-11-19 13:12 | CONS ---
Date/Time of Note Date/Time of Note DATE: 11/19/16 TIME: 13:09 Assessment/Plan Assessment/Plan Additional Assessment/Plan Assessment and plan; 1. Patient admitted for failure to thrive with no prior diagnosis of dementia but the patient's mental status is obviously indicative of that. 2. Alphahemolytic is gram-positive bacteremia likely contaminant. Discontinue vancomycin, start ampicillin 1 g IV every 6 hours. Patient likely will need to go to snf. We will get a social service consult for that. Continue current supportive care. Consultation Date/Type/Reason Admit Date/Time November 16, 2016 at 19:17 Initial Consult Date Type of Consultation: Internal medicine 24 HR Interval Summary Free Text/Dictation Patient condition is stable. Denies any shortness of breath, chest pain. Patient is quite awake but appears to be having dementia. General examination; elderly male, awake alert currently in no distress. Exam/Review of Systems Vital Signs Vitals Vital Signs Date Time Temp Pulse Resp B/P Pulse Ox O2 Delivery O2 Flow Rate FiO2 11/19/16 09:20 89 11/19/16 07:44 97.9 20 122/88 96 11/18/16 08:00 Room Air 11/17/16 08:00 2.0 Intake and Output 11/18/16 11/18/16 11/19/16 15:00 23:00 07:00 Intake Total 950 ml 1800 ml Output Total 1850 ml 1050 ml Balance -900 ml 750 ml Results H EENT exam; supple neck, no JVD. No lymphadenopathy. Midline trachea. Pupils are equal and reactive to light. Patient has fair dentition. Chest examination; clear to auscultation. S1-S2 audible, no murmurs. Abdomen examination; soft, nontender, non-distended. Bowel sounds audible. Extremity examination; no peripheral edema. Pulses 1+ bilaterally. ESCALATION ENGINEER examination; no focal deficit. Result Diagram: 11/19/1641911/19/16419 Results 24 hrs Laboratory Tests Test 11/19/16 04:20 White Blood Count 9.5 # Red Blood Count 4.14 L Hemoglobin 12.6 L Hematocrit 37.0 L Mean Corpuscular Volume 89.4 Mean Corpuscular Hemoglobin 30.4 Mean Corpuscular Hemoglobin Concent 34.1 Red Cell Distribution Width 13.2 Platelet Count 291 Mean Platelet Volume 10.4 Neutrophils % 75.5 Lymphocytes % 15.4 Monocytes % 7.6 Eosinophils % 0.8 Basophils % 0.4 Nucleated Red Blood Cells % 0.0 Neutrophils # 7.1 Lymphocytes # 1.5 Monocytes # 0.7 Eosinophils # 0.1 Basophils # 0.0 Nucleated Red Blood Cells # 0.0 Sodium Level 141 Potassium Level 3.4 L Chloride Level 104 Carbon Dioxide Level 24 Anion Gap 16 Blood Urea Nitrogen 13 Creatinine 0.63 Glucose Level 115 Calcium Level 9.5 Phosphorus Level 3.0 Magnesium Level 1.8 Medications Medications Current Medications Sodium Chloride (NS) 1,000 ml @ 70 mls/hr [id number] IV Last administered on 11/19 00:13; Admin Dose 70 MLS/HR; Start 11/16/16 at 22:56 Ondansetron HCl (Zofran Inj) 4 mg Q6H PRN IV NAUSEA AND/OR VOMITING; Start at 23:00 Acetaminophen (Tylenol Supp) 650 mg Q6H PRN [place] PAIN LEVEL 1-3 OR FEVER; Start 11/16/16 at 23:00 Famotidine (Pepcid Iv) 20 mg Q12 IV Last administered on 11/19/16 09:06; Admin Dose 20 MG; Start 11/16/16 at 23:00 Enoxaparin Sodium (Lovenox) 40 mg DAILY SC Last administered on 11/19/16 09:07 ; Admin Dose 40 MG; Start 11/17/16 at 09:00 Hydralazine HCl (Apresoline) 10 mg Q6H PRN IV SBP>160; Start 11/17/16 at 10:00 Nifedipine (Procardia Xl) 30 mg BID PO Last administered on 11/19/16 09:06; Admin Dose 30 MG; Start 11/17/16 at 21:00 Donepezil HCl (Aricept) 5 mg QHS PO Last administered on 11/18/16 21:12; Admin Dose 5 MG; Start 11/18/16 at 21:00 Haloperidol (Haldol) 2 mg Q6H PRN IM AGitation; Start 11/18/16 at 17:30 Miscellaneous Information (*Rx Drug Level Order Reminder*) VANCOMYCIN TROUGH AT 1,300 ON... ONCE ONCE XX ; Start 11/20/16 at 13:00; Stop 11/20/16 at 13:01 QARNI,TROY November 19, 2016 13:11
[2016-11-19] MEDS: AMPICILLIN 1 GM/NS (PMX) 50 ML IVPB SCH ×2 (14:03→17:30)
--- NOTE | 2016-11-19 17:17 | CONS ---
Date/Time of Note Date/Time of Note DATE: 11/19/16 TIME: 17:17 Assessment/Plan Assessment/Plan Chief Complaint/Hosp Course ID PROGRESS NOTE ABX DAY # Ampicillin s/p Vanco 24H INTERVAL SUMMARY * Lethargic, calm, looks comfortable, no fevers, NAD, FC * Chart reviewed-> BCx (+)Strep Viridans PHYSICAL EXAMINATION: GENERAL: VSS, NAD HEENT: Unremarkable NECK: Trach-> midline CHEST: Equal chest rise bilaterally, without dyspnea on observation HEART: Pulse RRR ABDOMEN: Soft EXTREMITIES: Warm, SKIN: Warm, dry ID ASSESSMENT: 86 yo M w/ admitted with: 1. Bacteremia=> BCx (+)Strep Viridans 2. Acute encephalopathy, likely toxic metabolic. 3. Dementia of Alzheimer's disease. 4. Anemia. 5. Hypertension. ABX ALLERGIES: None to ABX CURRENT ABX: # Ampicillin s/p Vanco ID RECOMMENDATIONS: 1. Continue current ABX -- source unknown anticipate 2 weeks RX and if he fails he will need 6-weeks 2. ID team will follow . . Problems: Consultation Date/Type/Reason Admit Date/Time November 16, 2016 at 19:17 Initial Consult Date Type of Consultation: ID Exam/Review of Systems Vital Signs Vitals Vital Signs Date Time Temp Pulse Resp B/P Pulse Ox O2 Delivery O2 Flow Rate FiO2 11/19/16 09:20 89 11/19/16 07:44 97.9 20 122/88 96 11/18/16 08:00 Room Air 11/17/16 08:00 2.0 Intake and Output 11/18/16 11/18/16 11/19/16 15:00 23:00 07:00 Intake Total 950 ml 1800 ml Output Total 1850 ml 1050 ml Balance -900 ml 750 ml Results Result Diagram: 11/19/16 0420 11/19/16 0420 Results 24 hrs Laboratory Tests Test 11/19/16 04:20 White Blood Count 9.5 # Red Blood Count 4.14 L Hemoglobin 12.6 L Hematocrit 37.0 L Mean Corpuscular Volume 89.4 Mean Corpuscular Hemoglobin 30.4 Mean Corpuscular Hemoglobin Concent 34.1 Red Cell Distribution Width 13.2 Platelet Count 291 Mean Platelet Volume 10.4 Neutrophils % 75.5 Lymphocytes % 15.4 Monocytes % 7.6 Eosinophils % 0.8 Basophils % 0.4 Nucleated Red Blood Cells % 0.0 Neutrophils # 7.1 Lymphocytes # 1.5 Monocytes # 0.7 Eosinophils # 0.1 Basophils # 0.0 Nucleated Red Blood Cells # 0.0 Sodium Level 141 Potassium Level 3.4 L Chloride Level 104 Carbon Dioxide Level 24 Anion Gap 16 Blood Urea Nitrogen 13 Creatinine 0.63 Glucose Level 115 Calcium Level 9.5 Phosphorus Level 3.0 Magnesium Level 1.8 Medications Medications Current Medications Sodium Chloride (NS) 1,000 ml @ 70 mls/hr [id number] IV Last administered on 11/19 15:00; Admin Dose 70 MLS/HR; Start 11/16/16 at 22:56 Ondansetron HCl (Zofran Inj) 4 mg Q6H PRN IV NAUSEA AND/OR VOMITING; Start at 23:00 Acetaminophen (Tylenol Supp) 650 mg Q6H PRN [place] PAIN LEVEL 1-3 OR FEVER; Start 11/16/16 at 23:00 Famotidine (Pepcid Iv) 20 mg Q12 IV Last administered on 11/19/16 09:06; Admin Dose 20 MG; Start 11/16/16 at 23:00 Enoxaparin Sodium (Lovenox) 40 mg DAILY SC Last administered on 11/19/16 09:07 ; Admin Dose 40 MG; Start 11/17/16 at 09:00 Hydralazine HCl (Apresoline) 10 mg Q6H PRN IV SBP>160; Start 11/17/16 at 10:00 Nifedipine (Procardia Xl) 30 mg BID PO Last administered on 11/19/16 09:06; Admin Dose 30 MG; Start 11/17/16 at 21:00 Donepezil HCl (Aricept) 5 mg QHS PO Last administered on 11/18/16 21:12; Admin Dose 5 MG; Start 11/18/16 at 21:00 Haloperidol 2 mg 2 mg Q6H PRN IM AGitation; Start 11/18/16 at 17:30 Ampicillin (Ampicillin 1 Gm/ NS (Pmx)) 50 ml @ 100 mls/hr Q6 IVPB Last administered on 11/19/16 14:03; Admin Dose 100 MLS/HR; Start 11/19/16 at 14:00 NURA MANUEL NP November 19, 2016 17:17
[2016-11-19 20:17] VITALS: BP 120/70; RESP 21
[2016-11-19] MEDS ORDERED: GUAIFENESIN LA 600 MG TABSR PO SCH (22:00)
[2016-11-19] MEDS: DONEPEZIL 5 MG TAB PO SCH (22:04)
[2016-11-20] MEDS: GUAIFENESIN/DM 5ML CUP PO PRN ×3 (00:52→17:55)
[2016-11-20] MEDS: AMPICILLIN 1 GM/NS (PMX) 50 ML IVPB SCH ×4 (00:52→17:55)
[2016-11-20 07:09] VITALS: BP 168/89; RESP 16
[2016-11-20] MEDS: SOD CHLORIDE 0.9% 1,000 ML IV SCH (08:20)
[2016-11-20] MEDS: ENOXAPARIN 40 MG/0.4 ML SYG SC SCH (08:22)
[2016-11-20] MEDS: FAMOTIDINE 20 MG INJ IV SCH ×2 (08:22→21:13)
[2016-11-20] MEDS: NIFEdipine (XL) 30 MG TAB PO SCH ×2 (08:28→21:14)
[2016-11-20 09:00] VITALS: BP 131/78
--- NOTE | 2016-11-20 10:47 | CONS ---
Date/Time of Note Date/Time of Note DATE: 11/20/16 TIME: 10:45 Assessment/Plan Assessment/Plan Additional Assessment/Plan Assessment and plan; next 1. Patient admitted for failure to thrive owing to advanced dementia. 2. Gram-positive bacteremia likely contaminant, patient on ampicillin. Continue current treatment. Patient will be placed in a senior care. I did have a very detailed discussion the patient's son and yesterday and they are in agreement that the patient needs to be placed in a senior care facility. We will continue ampicillin for now. Consultation Date/Type/Reason Admit Date/Time November 16, 2016 at 19:17 Type of Consultation: Internal medicine 24 HR Interval Summary Free Text/Dictation Patient condition is stable. Still remains confused. Due to underlying dementia. Has remained hemodynamically stable. Ruth; elderly male, awake alert currently in no distress. Appears confused. Patient requiring a sitter in the room. Exam/Review of Systems Vital Signs Vitals Vital Signs Date Time Temp Pulse Resp B/P Pulse Ox O2 Delivery O2 Flow Rate FiO2 11/20/16 09:00 83 131/78 11/20/16 07:09 98.2 16 96 11/18/16 08:00 Room Air 11/17/16 08:00 2.0 Intake and Output 11/19/16 11/19/16 11/20/16 15:00 23:00 07:00 Intake Total 680 ml 1270 ml 1050 ml Output Total 1100 ml 400 ml Balance 680 ml 170 ml 650 ml Exam HEENT exam is; supple neck, no JVD. No lymphadenopathy. Midline trachea. No thyromegaly. Chest examination; clear to ulceration. S1-S2 audible, no murmurs. Regular rhythm. Abdomen examination; soft, nontender. No organomegaly. Bowel sounds audible. Extremity exam is; no peripheral edema. STATISTICAL FINANCIAL ANALYST examination; no obvious focal motor deficit. Results Result Diagram: 11/19/1641911/19/16419 Medications Medications Current Medications Sodium Chloride (NS) 1,000 ml @ 70 mls/hr [id number] IV Last administered on 11/20t 08:20; Admin Dose 70 MLS/HR; Start 11/16/16 at 22:56 Ondansetron HCl (Zofran Inj) 4 mg Q6H PRN IV NAUSEA AND/OR VOMITING; Start at 23:00 Acetaminophen (Tylenol Supp) 650 mg Q6H PRN [place] PAIN LEVEL 1-3 OR FEVER; Start 11/16/16 at 23:00 Famotidine (Pepcid Iv) 20 mg Q12 IV Last administered on 11/20/16 08:22; Admin Dose 20 MG; Start 11/16/16 at 23:00 Enoxaparin Sodium (Lovenox) 40 mg DAILY SC Last administered on 11/20/16 08:22 ; Admin Dose 40 MG; Start 11/17/16 at 09:00 Hydralazine HCl (Apresoline) 10 mg Q6H PRN IV SBP>160; Start 11/17/16 at 10:00 Nifedipine (Procardia Xl) 30 mg BID PO Last administered on 11/20/16 08:28; Admin Dose 30 MG; Start 11/17/16 at 21:00 Donepezil HCl (Aricept) 5 mg QHS PO Last administered on 11/19/16 22:04; Admin Dose 5 MG; Start 11/18/16 at 21:00 Haloperidol 2 mg 2 mg Q6H PRN IM AGitation; Start 11/18/16 at 17:30 Ampicillin (Ampicillin 1 Gm/ NS (Pmx)) 50 ml @ 100 mls/hr Q6 IVPB Last administered on 11/20/16 05:24; Admin Dose 100 MLS/HR; Start 11/19/16 at 14:00 Guaifenesin/ Dextromethorphan (Robitussin Dm Liquid Cup) 10 ml Q4H PRN PO Productive cough Last administered on 11/20/16 05:25; Admin Dose 10 ML; Start 11/19/16 at 22:30 TROY COLVIN November 20, 2016 10:47
--- NOTE | 2016-11-20 11:56 | CONS ---
Date/Time of Note Date/Time of Note DATE: 11/20/16 TIME: 11:45 Assessment/Plan Assessment/Plan Chief Complaint/Hosp Course ID PROGRESS NOTE ABX DAY # Ampicillin #4 + Tobra INH #1 s/p Vanco 24H INTERVAL SUMMARY * Chest congestion w/retained secretions which are "green" per nursing staff, Patient unable to expectorate * CXR 11/18: 1. No radiographic evidence of acute cardiopulmonary disease. * Lethargy persists, no fevers, NAD, FC * Chart reviewed-> BCx (+)Strep Viridans ? Contaminant vs ?opportunistic ? * Family working w/CM on placement, insurance options PHYSICAL EXAMINATION: GENERAL: VSS, NAD HEENT: Unremarkable NECK: Trach-> midline CHEST: Equal chest rise bilaterally, without dyspnea on observation, chest cough HEART: Pulse RRR ABDOMEN: Soft EXTREMITIES: Warm, SKIN: Warm, dry ID ASSESSMENT: 86 yo M w/PMHx [place] Dementia admitted with: 1. Bacteremia=> BCx (+)Strep Viridans * DDx includes skin contaminant - patient is coughing, mouth bacteria likely source 2. Bronchial congestion w/green retained secretions, unable to expectorate 3. Acute encephalopathy, likely toxic metabolic 4. Anemia. 5. Hypertension. ABX ALLERGIES: None to ABX CURRENT ABX: => Ampicillin #4 + Tobra INH #1 s/p Vanco ID RECOMMENDATIONS: 1. Continue current ABX: * Alpha Strep may be contaminant -> IV ABX x 7 days w/"PO Switch" therapy to complete 2 weeks RX. 2. ASP Precautions retained secretions 3 . Add Tobramycin INH for greenish bronchial secretions: off-load bacteria 4. ID team will follow . Problems: Consultation Date/Type/Reason Admit Date/Time November 16, 2016 at 19:17 Type of Consultation: ID Exam/Review of Systems Vital Signs Vitals Vital Signs Date Time Temp Pulse Resp B/P Pulse Ox O2 Delivery O2 Flow Rate FiO2 11/20/16 09:00 83 131/78 11/20/16 07:09 98.2 16 96 11/18/16 08:00 Room Air 11/17/16 08:00 2.0 Intake and Output 11/19/16 11/19/16 11/20/16 15:00 23:00 07:00 Intake Total 680 ml 1270 ml 1050 ml Output Total 1100 ml 400 ml Balance 680 ml 170 ml 650 ml Results Result Diagram: 11/19/16 0420 11/19/16 0420 Medications Medications Current Medications Sodium Chloride (NS) 1,000 ml @ 70 mls/hr [id number] IV Last administered on 11/20 08:20; Admin Dose 70 MLS/HR; Start 11/16/16 at 22:56 Ondansetron HCl (Zofran Inj) 4 mg Q6H PRN IV NAUSEA AND/OR VOMITING; Start at 23:00 Acetaminophen (Tylenol Supp) 650 mg Q6H PRN [place] PAIN LEVEL 1-3 OR FEVER; Start 11/16/16 at 23:00 Famotidine (Pepcid Iv) 20 mg Q12 IV Last administered on 11/20/16 08:22; Admin Dose 20 MG; Start 11/16/16 at 23:00 Enoxaparin Sodium (Lovenox) 40 mg DAILY SC Last administered on 11/20/16 08:22 ; Admin Dose 40 MG; Start 11/17/16 at 09:00 Hydralazine HCl (Apresoline) 10 mg Q6H PRN IV SBP>160; Start 11/17/16 at 10:00 Nifedipine (Procardia Xl) 30 mg BID PO Last administered on 11/20/16 08:28; Admin Dose 30 MG; Start 11/17/16 at 21:00 Donepezil HCl (Aricept) 5 mg QHS PO Last administered on 11/19/16 22:04; Admin Dose 5 MG; Start 11/18/16 at 21:00 Haloperidol 2 mg 2 mg Q6H PRN IM AGitation; Start 11/18/16 at 17:30 Ampicillin (Ampicillin 1 Gm/ NS (Pmx)) 50 ml @ 100 mls/hr Q6 IVPB Last administered on 11/20/16 05:24; Admin Dose 100 MLS/HR; Start 11/19/16 at 14:00 Guaifenesin/ Dextromethorphan (Robitussin Dm Liquid Cup) 10 ml Q4H PRN PO Productive cough Last administered on 11/20/16 05:25; Admin Dose 10 ML; Start 11/19/16 at 22:30 NURA MANUEL NP November 20, 2016 11:55
[2016-11-20] MEDS: TOBRAMYCIN/0.25NS 300 MG/5 ML INHAL NEB SCH ×2 (16:10→19:56)
[2016-11-20 19:25] VITALS: BP 144/72; RESP 19
[2016-11-20] MEDS: DONEPEZIL 5 MG TAB PO SCH (21:14)
[2016-11-21] MEDS: AMPICILLIN 1 GM/NS (PMX) 50 ML IVPB SCH ×5 (01:11→23:29)
[2016-11-21] MEDS: SOD CHLORIDE 0.9% 1,000 ML IV SCH ×2 (02:08→18:07)
[2016-11-21] MEDS: TOBRAMYCIN/0.25NS 300 MG/5 ML INHAL NEB SCH ×2 (08:31→20:16)
[2016-11-21] MEDS: NIFEdipine (XL) 30 MG TAB PO SCH ×2 (09:14→21:32)
[2016-11-21] MEDS: FAMOTIDINE 20 MG INJ IV SCH (09:14)
[2016-11-21] MEDS: ENOXAPARIN 40 MG/0.4 ML SYG SC SCH (09:15)
[2016-11-21 09:19] VITALS: BP 125/90; PULSE 86; RESP 20
[2016-11-21] MEDS: CEFTRIAXONE 1 GM/50 ML (PMX) 50 ML IVPB SCH (15:22)
--- NOTE | 2016-11-21 15:59 | PN ---
Date/Time of Note Date/Time of Note DATE: 11/21/16 TIME: 15:56 Assessment/Plan VTE Prophylaxis VTE Prophylaxis Intervention: LMWH Lines/Catheters IV Catheter Type (from Nrs): Peripheral IV Urinary Cath still in place: Yes Reason Cath still needed: other (indicate) Assessment/Plan Assessment/Plan 1. Hypertension. controlled 2. Failure to thrive. dementia related, follow up with home health care social worker and registered nurse hh case manager 3. Alzheimer's disease. Continue frequent reorientation. Continue close monitoring. 4. Normocytic normochromic anemia.chronic, mild 5. Deep venous thrombosis prophylaxis with subcutaneous Lovenox. Subjective 24 Hr Interval Summary Free Text/Dictation no distress. afebrile Exam/Review of Systems Vital Signs Vitals Vital Signs Date Time Temp Pulse Resp B/P Pulse Ox O2 Delivery O2 Flow Rate FiO2 11/21/16 09:19 98.2 86 20 125/90 96 Room Air 11/20/16 19:48 21 11/17/16 08:00 2.0 Intake and Output 11/20/16 11/20/16 11/21/16 15:00 23:00 07:00 Intake Total 550 ml 470 ml 885 ml Output Total 900 ml Balance 550 ml 470 ml -15 ml Exam Constitutional: alert Head: atraumatic, normocephalic Eyes: EOMI, nl conjunctiva, nl lids ENMT: nl external ears & nose, nl lips & teeth, nl nasal mucosa & septum Neck: non-tender, supple Respiratory: clear to auscultation, normal air movement, No congested cough, No crackles/rales, No diminished breath sounds, No intercostal retraction, No labored breathing, No other, No respirations, No tactile fremitus, No wheezing Cardiovascular: nl pulses, regular rate and rhythm, No S3, No S4, No bruits, No diastolic murmur, No edema, No gallop, No irregular rhythm, No jugular venous distention (JVD), No murmurs/extra sounds, No other, No rub, No systolic murmur Gastrointestinal: nl liver, spleen, non-tender, soft, No ascites, No bowel sounds, No distended, No firm, No hepatomegaly, No mass , No other, No rebound or guarding, No splenomegaly, No surgical scars, No tender Musculoskeletal: nl extremities to inspection Extremities: normal pulses, No calf tenderness, No clubbing, No cyanosis, No edema, No other, No palpable cord, No pitting pedal edema, No tenderness Neurological: HORTICULTURAL TECHNICAL OFFICER II-XII intact, confused, nl speech Skin: nl turgor Lymph: nl lymph nodes Results Result Diagram: 11/19/16 0420 11/19/16 0420 Medications Medications Current Medications Sodium Chloride (NS) 1,000 ml @ 70 mls/hr [id number] IV Last administered on 11/21 02:08; Admin Dose 70 MLS/HR; Start 11/16/16 at 22:56 Ondansetron HCl (Zofran Inj) 4 mg Q6H PRN IV NAUSEA AND/OR VOMITING; Start at 23:00 Acetaminophen (Tylenol Supp) 650 mg Q6H PRN [place] PAIN LEVEL 1-3 OR FEVER; Start 11/16/16 at 23:00 Enoxaparin Sodium (Lovenox) 40 mg DAILY SC Last administered on 11/21/16 09:15 ; Admin Dose 40 MG; Start 11/17/16 at 09:00 Hydralazine HCl (Apresoline) 10 mg Q6H PRN IV SBP>160; Start 11/17/16 at 10:00 Nifedipine (Procardia Xl) 30 mg BID PO Last administered on 11/21/16 09:14; Admin Dose 30 MG; Start 11/17/16 at 21:00 Donepezil HCl (Aricept) 5 mg QHS PO Last administered on 11/20/16 21:14; Admin Dose 5 MG; Start 11/18/16 at 21:00 Haloperidol 2 mg 2 mg Q6H PRN IM AGitation; Start 11/18/16 at 17:30 Ampicillin (Ampicillin 1 Gm/ NS (Pmx)) 50 ml @ 100 mls/hr Q6 IVPB Last administered on 11/21/16 12:25; Admin Dose 100 MLS/HR; Start 11/19/16 at 14:00 Guaifenesin/ Dextromethorphan (Robitussin Dm Liquid Cup) 10 ml Q4H PRN PO Productive cough Last administered on 11/20/16 17:55; Admin Dose 10 ML; Start 11/19/16 at 22:30 Famotidine 20 mg 20 mg DAILY PO ; Start 11/22/16 at 09:00 Ceftriaxone Sodium (Rocephin) 50 ml @ 100 mls/hr Q24H IVPB Last administered on 11/21/16t 15:22; Admin Dose 100 MLS/HR; Start 11/21/16 at 14:30 ANDREA SIMMS MD November 21, 2016 15:59
--- NOTE | 2016-11-21 16:38 | PN ---
DATE: 11/21/2016 INFECTIOUS DISEASE PROGRESS NOTE SUBJECTIVE: No acute changes overnight. The patient is awake, confused, in no distress. No fevers . VITAL SIGNS: Stable. Repeat blood cultures negative. No labs this morning. ANTIMICROBIALS: Tobramycin inhalation. PHYSICAL EXAMINATION: GENERAL: This is a fragile, chronically ill-appearing, elderly man who is in no distress. HEENT: Head atraumatic, normocephalic. Sclerae anicteric. Buccal mucosa dry. NECK: Supple, trachea midline. CHEST: Rise symmetrical. Breath sounds diminished to bases. HEART: S1, S2. ABDOMEN: Soft. Bowel tones present. ASSESSMENT: 1. Sepsis with acute encephalopathy and tachycardia on admission. 2. Alpha hemolytic strep bacteremia on admission with repeat blood cultures negative. 3. Possible pneumonia versus acute bronchitis. 4. Dementia. 5. DNR status. PLAN: The patient is clinically stable. We will keep him on IV Rocephin for bacteremia. Continue tobramycin inhalation, anti-aspiration measures. Dictated By: LEATHA HAYNES ARTIFACTS CONSERVATOR for ALLEN SUAREZ/PASCUAL Conf#: [id number] DID#: [id number]
[2016-11-21 20:04] VITALS: BP 145/72; RESP 20
[2016-11-21] MEDS: DONEPEZIL 5 MG TAB PO SCH (21:32)
[2016-11-22] MEDS: AMPICILLIN 1 GM/NS (PMX) 50 ML IVPB SCH ×3 (06:03→18:17)
[2016-11-22 08:41] VITALS: BP 127/61; RESP 19
[2016-11-22] MEDS: TOBRAMYCIN/0.25NS 300 MG/5 ML INHAL NEB SCH ×2 (08:50→20:02)
[2016-11-22] MEDS: ENOXAPARIN 40 MG/0.4 ML SYG SC SCH (09:12)
[2016-11-22] MEDS: FAMOTIDINE 20 MG TAB PO SCH (09:12)
[2016-11-22] MEDS: NIFEdipine (XL) 30 MG TAB PO SCH ×2 (09:12→20:07)
[2016-11-22] MEDS: SOD CHLORIDE 0.9% 1,000 ML IV SCH ×2 (09:13→21:56)
--- NOTE | 2016-11-22 13:26 | PN ---
Date/Time of Note Date/Time of Note DATE: 11/22/16 TIME: 13:24 Assessment/Plan VTE Prophylaxis VTE Prophylaxis Intervention: LMWH Lines/Catheters IV Catheter Type (from Nrs): Peripheral IV Urinary Cath still in place: Yes Reason Cath still needed: other (indicate) Assessment/Plan Assessment/Plan 1. Hypertension. controlled 2. Failure to thrive. dementia related, follow up with psychosocial rehabilitation counselor and community case manager, janel for appetite 3. Alzheimer's disease. Continue frequent reorientation. Continue close monitoring. 4. Normocytic normochromic anemia.chronic, mild 5. Deep venous thrombosis prophylaxis with subcutaneous Lovenox. Subjective 24 Hr Interval Summary Free Text/Dictation demented Exam/Review of Systems Vital Signs Vitals Vital Signs Date Time Temp Pulse Resp B/P Pulse Ox O2 Delivery O2 Flow Rate FiO2 11/22/16 08:41 98.0 69 19 127/61 97 11/21/16 20:18 21 11/21/16 09:19 Room Air Intake and Output 11/21/16 11/21/16 11/22/16 15:00 23:00 07:00 Intake Total 50 ml 1215 ml 930 ml Output Total 1300 ml 800 ml Balance 50 ml -85 ml 130 ml Exam Constitutional: alert, other (demented) Head: atraumatic, normocephalic Eyes: EOMI, PERRL, nl conjunctiva, nl lids ENMT: nl external ears & nose, nl lips & teeth, nl nasal mucosa & septum Neck: non-tender, supple Respiratory: clear to auscultation, normal air movement, No congested cough, No crackles/rales, No diminished breath sounds, No intercostal retraction, No labored breathing, No other, No respirations, No tactile fremitus, No wheezing Cardiovascular: nl pulses, regular rate and rhythm, No S3, No S4, No bruits, No diastolic murmur, No edema, No gallop, No irregular rhythm, No jugular venous distention (JVD), No murmurs/extra sounds, No other, No rub, No systolic murmur Gastrointestinal: nl liver, spleen, non-tender, soft, No ascites, No bowel sounds, No distended, No firm, No hepatomegaly, No mass , No other, No rebound or guarding, No splenomegaly, No surgical scars, No tender Musculoskeletal: nl extremities to inspection Extremities: normal pulses, No calf tenderness, No clubbing, No cyanosis, No edema, No other, No palpable cord, No pitting pedal edema, No tenderness Neurological: ELECTRONICS ENGINEER II-XII intact, nl mental status, nl speech, nl strength Skin: nl turgor Lymph: nl lymph nodes Results Result Diagram: 11/19/1641911/19/16 042 Medications Medications Current Medications Sodium Chloride (NS) 1,000 ml @ 70 mls/hr [id number] IV Last administered on 11/22 09:13; Admin Dose 70 MLS/HR; Start 11/16/16 at 22:56 Ondansetron HCl (Zofran Inj) 4 mg Q6H PRN IV NAUSEA AND/OR VOMITING; Start at 23:00 Acetaminophen (Tylenol Supp) 650 mg Q6H PRN [place] PAIN LEVEL 1-3 OR FEVER; Start 11/16/16 at 23:00 Enoxaparin Sodium (Lovenox) 40 mg DAILY SC Last administered on 11/22/16 09:12 ; Admin Dose 40 MG; Start 11/17/16 at 09:00 Hydralazine HCl (Apresoline) 10 mg Q6H PRN IV SBP>160; Start 11/17/16 at 10:00 Nifedipine (Procardia Xl) 30 mg BID PO Last administered on 11/22/16 09:12; Admin Dose 30 MG; Start 11/17/16 at 21:00 Donepezil HCl (Aricept) 5 mg QHS PO Last administered on 11/21/16 21:32; Admin Dose 5 MG; Start 11/18/16 at 21:00 Haloperidol 2 mg 2 mg Q6H PRN IM AGitation; Start 11/18/16 at 17:30 Ampicillin (Ampicillin 1 Gm/ NS (Pmx)) 50 ml @ 100 mls/hr Q6 IVPB Last administered on 11/22/16 12:41; Admin Dose 100 MLS/HR; Start 11/19/16 at 14:00 Guaifenesin/ Dextromethorphan (Robitussin Dm Liquid Cup) 10 ml Q4H PRN PO Productive cough Last administered on 11/20/16 17:55; Admin Dose 10 ML; Start 11/19/16 at 22:30 Famotidine 20 mg 20 mg DAILY PO Last administered on 11/22/16 09:12; Admin Dose 20 MG; Start 11/22/16 at 09:00 Ceftriaxone Sodium (Rocephin) 50 ml @ 100 mls/hr Q24H IVPB Last administered on 11/21/16 15:22; Admin Dose 100 MLS/HR; Start 11/21/16 at 14:30 ANDREA SIMMS MD November 22, 2016 13:26
--- NOTE | 2016-11-22 15:07 | CONS ---
Date/Time of Note Date/Time of Note DATE: 11/22/16 TIME: 15:06 Assessment/Plan Assessment/Plan Chief Complaint/Hosp Course SUBJECTIVE: No acute changes overnight. The patient is awake, confused, in no distress. No fevers. ANTIMICROBIALS: Tobramycin inhalation, Rocephin. PHYSICAL EXAMINATION: GENERAL: This is a fragile, chronically ill-appearing, elderly man who is in no distress. HEENT: Head atraumatic, normocephalic. Sclerae anicteric. Buccal mucosa dry. NECK: Supple, trachea midline. CHEST: Rise symmetrical. Breath sounds diminished to bases. HEART: S1, S2. ABDOMEN: Soft. Bowel tones present. ASSESSMENT: 1. Sepsis with acute encephalopathy and tachycardia on admission. 2. Alpha hemolytic strep bacteremia on admission with repeat blood cultures negative. 3. Possible pneumonia versus acute bronchitis. 4. Dementia. 5. DNR status. PLAN: The patient is clinically unchanged. We will keep him on IV Rocephin for bacteremia. Continue tobramycin inhalation, anti-aspiration measures. DW staff Problems: Consultation Date/Type/Reason Admit Date/Time November 16, 2016 at 19:17 Initial Consult Date Type of Consultation: ID Exam/Review of Systems Vital Signs Vitals Vital Signs Date Time Temp Pulse Resp B/P Pulse Ox O2 Delivery O2 Flow Rate FiO2 11/22/16 08:41 98.0 69 19 127/61 97 11/21/16 20:18 21 11/21/16 09:19 Room Air Intake and Output 11/21/16 11/21/16 11/22/16 15:00 23:00 07:00 Intake Total 50 ml 1215 ml 930 ml Output Total 1300 ml 800 ml Balance 50 ml -85 ml 130 ml Results Result Diagram: 11/19/16 0420 11/19/16 0420 Medications Medications Current Medications Sodium Chloride (NS) 1,000 ml @ 70 mls/hr [id number] IV Last administered on 11/22t 09:13; Admin Dose 70 MLS/HR; Start 11/16/16 at 22:56 Ondansetron HCl (Zofran Inj) 4 mg Q6H PRN IV NAUSEA AND/OR VOMITING; Start at 23:00 Acetaminophen (Tylenol Supp) 650 mg Q6H PRN [place] PAIN LEVEL 1-3 OR FEVER; Start 11/16/16 at 23:00 Enoxaparin Sodium (Lovenox) 40 mg DAILY SC Last administered on 11/22/16 09:12 ; Admin Dose 40 MG; Start 11/17/16 at 09:00 Hydralazine HCl (Apresoline) 10 mg Q6H PRN IV SBP>160; Start 11/17/16 at 10:00 Nifedipine (Procardia Xl) 30 mg BID PO Last administered on 11/22/16 09:12; Admin Dose 30 MG; Start 11/17/16 at 21:00 Donepezil HCl (Aricept) 5 mg QHS PO Last administered on 11/21/16 21:32; Admin Dose 5 MG; Start 11/18/16 at 21:00 Haloperidol 2 mg 2 mg Q6H PRN IM AGitation; Start 11/18/16 at 17:30 Ampicillin (Ampicillin 1 Gm/ NS (Pmx)) 50 ml @ 100 mls/hr Q6 IVPB Last administered on 11/22/16 12:41; Admin Dose 100 MLS/HR; Start 11/19/16 at 14:00 Guaifenesin/ Dextromethorphan (Robitussin Dm Liquid Cup) 10 ml Q4H PRN PO Productive cough Last administered on 11/20/16 17:55; Admin Dose 10 ML; Start 11/19/16 at 22:30 Famotidine 20 mg 20 mg DAILY PO Last administered on 11/22/16 09:12; Admin Dose 20 MG; Start 11/22/16 at 09:00 Ceftriaxone Sodium (Rocephin) 50 ml @ 100 mls/hr Q24H IVPB Last administered on 11/21/16 15:22; Admin Dose 100 MLS/HR; Start 11/21/16 at 14:30 Olanzapine (Zyprexa) 2.5 mg DAILY PO ; Start 11/22/16 at 15:00 Megestrol Acetate (Megace) 40 mg DAILY PO ; Start 11/22/16 at 14:00 LEATHA HAYNES NP November 22, 2016 15:07
[2016-11-22] MEDS: MEGESTROL 40 MG TAB PO SCH (16:41)
[2016-11-22] MEDS: CEFTRIAXONE 1 GM/50 ML (PMX) 50 ML IVPB SCH (16:41)
[2016-11-22] MEDS: OLANZAPINE 2.5 MG TAB PO SCH (16:41)
[2016-11-22 19:45] VITALS: BP 135/75; RESP 19
[2016-11-22] MEDS: DONEPEZIL 5 MG TAB PO SCH (20:07)
[2016-11-23] MEDS: AMPICILLIN 1 GM/NS (PMX) 50 ML IVPB SCH ×4 (00:24→17:14)
[2016-11-23] MEDS: SOD CHLORIDE 0.9% 1,000 ML IV SCH (06:25)
[2016-11-23 08:27] VITALS: BP 138/94; RESP 20
[2016-11-23] MEDS: TOBRAMYCIN/0.25NS 300 MG/5 ML INHAL NEB SCH ×2 (09:00→20:40)
[2016-11-23] MEDS: ENOXAPARIN 40 MG/0.4 ML SYG SC SCH (09:06)
[2016-11-23] MEDS: MEGESTROL 40 MG TAB PO SCH (09:06)
[2016-11-23] MEDS: OLANZAPINE 2.5 MG TAB PO SCH (09:07)
[2016-11-23] MEDS: FAMOTIDINE 20 MG TAB PO SCH (09:07)
[2016-11-23] MEDS: NIFEdipine (XL) 30 MG TAB PO SCH ×2 (09:07→21:17)
--- NOTE | 2016-11-23 13:44 | CONS ---
Date/Time of Note Date/Time of Note DATE: 11/23/16 TIME: 13:44 Assessment/Plan Assessment/Plan Chief Complaint/Hosp Course SUBJECTIVE: No acute changes overnight. The patient is awake, confused, in no distress. No fevers. ANTIMICROBIALS: Tobramycin inhalation, Rocephin. PHYSICAL EXAMINATION: GENERAL: This is a fragile, chronically ill-appearing, elderly man who is in no distress. HEENT: Head atraumatic, normocephalic. Sclerae anicteric. Buccal mucosa dry. NECK: Supple, trachea midline. CHEST: Rise symmetrical. Breath sounds diminished to bases. HEART: S1, S2. ABDOMEN: Soft. Bowel tones present. ASSESSMENT: 1. Sepsis with acute encephalopathy and tachycardia on admission. 2. Alpha hemolytic strep bacteremia on admission with repeat blood cultures negative. 3. Possible pneumonia versus acute bronchitis. 4. Dementia. 5. DNR status. PLAN: The patient is clinically unchanged. Continue Rocephin for bacteremia. Continue tobramycin inhalation, anti-aspiration measures. DW staff Problems: Consultation Date/Type/Reason Admit Date/Time November 16, 2016 at 19:17 Type of Consultation: ID Exam/Review of Systems Vital Signs Vitals Vital Signs Date Time Temp Pulse Resp B/P Pulse Ox O2 Delivery O2 Flow Rate FiO2 11/23/16 11:46 87 18 94 21 11/23/16 08:27 99.0 138/94 11/21/16 09:19 Room Air Intake and Output 11/22/16 11/22/16 11/23/16 15:00 23:00 07:00 Intake Total 500 ml 1250 ml Output Total 800 ml 750 ml Balance -300 ml 500 ml Results Result Diagram: 11/19/16 0420 11/19/16 0420 Medications Medications Current Medications Sodium Chloride (NS) 1,000 ml @ 70 mls/hr [id number] IV Last administered on 11/23t 06:25; Admin Dose 70 MLS/HR; Start 11/16/16 at 22:56 Ondansetron HCl (Zofran Inj) 4 mg Q6H PRN IV NAUSEA AND/OR VOMITING; Start at 23:00 Acetaminophen (Tylenol Supp) 650 mg Q6H PRN [place] PAIN LEVEL 1-3 OR FEVER; Start 11/16/16 at 23:00 Enoxaparin Sodium (Lovenox) 40 mg DAILY SC Last administered on 11/23/16 09:06 ; Admin Dose 40 MG; Start 11/17/16 at 09:00 Hydralazine HCl (Apresoline) 10 mg Q6H PRN IV SBP>160; Start 11/17/16 at 10:00 Nifedipine (Procardia Xl) 30 mg BID PO Last administered on 11/23/16 09:07; Admin Dose 30 MG; Start 11/17/16 at 21:00 Donepezil HCl (Aricept) 5 mg QHS PO Last administered on 11/22/16 20:07; Admin Dose 5 MG; Start 11/18/16 at 21:00 Haloperidol 2 mg 2 mg Q6H PRN IM AGitation; Start 11/18/16 at 17:30 Ampicillin (Ampicillin 1 Gm/ NS (Pmx)) 50 ml @ 100 mls/hr Q6 IVPB Last administered on 11/23/16 11:46; Admin Dose 100 MLS/HR; Start 11/19/16 at 14:00 Guaifenesin/ Dextromethorphan (Robitussin Dm Liquid Cup) 10 ml Q4H PRN PO Productive cough Last administered on 11/20/16 17:55; Admin Dose 10 ML; Start 11/19/16 at 22:30 Famotidine 20 mg 20 mg DAILY PO Last administered on 11/23/16 09:07; Admin Dose 20 MG; Start 11/22/16 at 09:00 Ceftriaxone Sodium (Rocephin) 50 ml @ 100 mls/hr Q24H IVPB Last administered on 11/22/16 16:41; Admin Dose 100 MLS/HR; Start 11/21/16 at 14:30 Olanzapine (Zyprexa) 2.5 mg DAILY PO Last administered on 11/23/16 09:07; Admin Dose 2.5 MG; Start 11/22/16 at 15:00 Megestrol Acetate (Megace) 40 mg DAILY PO Last administered on 11/23/16 09:06 ; Admin Dose 40 MG; Start 11/22/16 at 14:00 LEATHA HAYNES NP November 23, 2016 13:44
[2016-11-23] MEDS: CEFTRIAXONE 1 GM/50 ML (PMX) 50 ML IVPB SCH (13:57)
--- NOTE | 2016-11-23 15:33 | PN ---
Date/Time of Note Date/Time of Note DATE: 11/23/16 TIME: 15:31 Assessment/Plan VTE Prophylaxis VTE Prophylaxis Intervention: LMWH Lines/Catheters IV Catheter Type (from Nrs): Peripheral IV Urinary Cath still in place: Yes Reason Cath still needed: other (indicate) Assessment/Plan Assessment/Plan 1. Hypertension. controlled 2. Failure to thrive. dementia related, follow up with psychiatric social worker and nurse outreach case manager, janel for appetite 3. Alzheimer's disease. Continue frequent reorientation. Continue close monitoring. 4. Normocytic normochromic anemia.chronic, mild 5. Deep venous thrombosis prophylaxis with subcutaneous Lovenox. Subjective 24 Hr Interval Summary Free Text/Dictation calm no distress Exam/Review of Systems Vital Signs Vitals Vital Signs Date Time Temp Pulse Resp B/P Pulse Ox O2 Delivery O2 Flow Rate FiO2 11/23/16 11:46 87 18 94 21 11/23/16 08:27 99.0 138/94 11/21/16 09:19 Room Air Intake and Output 11/22/16 11/22/16 11/23/16 15:00 23:00 07:00 Intake Total 500 ml 1250 ml Output Total 800 ml 750 ml Balance -300 ml 500 ml Exam Constitutional: alert, well developed Head: atraumatic, normocephalic Eyes: EOMI, PERRL, nl conjunctiva, nl lids ENMT: nl external ears & nose, nl lips & teeth, nl nasal mucosa & septum Neck: non-tender, supple Respiratory: clear to auscultation, normal air movement, No congested cough, No crackles/rales, No diminished breath sounds, No intercostal retraction, No labored breathing, No other, No respirations, No tactile fremitus, No wheezing Cardiovascular: nl pulses, regular rate and rhythm, No S3, No S4, No bruits, No diastolic murmur, No edema, No gallop, No irregular rhythm, No jugular venous distention (JVD), No murmurs/extra sounds, No other, No rub, No systolic murmur Gastrointestinal: nl liver, spleen, non-tender, soft, No ascites, No bowel sounds, No distended, No firm, No hepatomegaly, No mass , No other, No rebound or guarding, No splenomegaly, No surgical scars, No tender Musculoskeletal: nl extremities to inspection Extremities: normal pulses, No calf tenderness, No clubbing, No cyanosis, No edema, No other, No palpable cord, No pitting pedal edema, No tenderness Neurological: TAX ECONOMIST II-XII intact, confused Skin: nl turgor Results Result Diagram: 11/19/16 0420 11/19/16 0420 Medications Medications Current Medications Sodium Chloride (NS) 1,000 ml @ 70 mls/hr [id number] IV Last administered on 11/23 06:25; Admin Dose 70 MLS/HR; Start 11/16/16 at 22:56 Ondansetron HCl (Zofran Inj) 4 mg Q6H PRN IV NAUSEA AND/OR VOMITING; Start at 23:00 Acetaminophen (Tylenol Supp) 650 mg Q6H PRN [place] PAIN LEVEL 1-3 OR FEVER; Start 11/16/16 at 23:00 Enoxaparin Sodium (Lovenox) 40 mg DAILY SC Last administered on 11/23/16 09:06 ; Admin Dose 40 MG; Start 11/17/16 at 09:00 Hydralazine HCl (Apresoline) 10 mg Q6H PRN IV SBP>160; Start 11/17/16 at 10:00 Nifedipine (Procardia Xl) 30 mg BID PO Last administered on 11/23/16 09:07; Admin Dose 30 MG; Start 11/17/16 at 21:00 Donepezil HCl (Aricept) 5 mg QHS PO Last administered on 11/22/16 20:07; Admin Dose 5 MG; Start 11/18/16 at 21:00 Haloperidol 2 mg 2 mg Q6H PRN IM AGitation; Start 11/18/16 at 17:30 Ampicillin (Ampicillin 1 Gm/ NS (Pmx)) 50 ml @ 100 mls/hr Q6 IVPB Last administered on 11/23/16 11:46; Admin Dose 100 MLS/HR; Start 11/19/16 at 14:00 Guaifenesin/ Dextromethorphan (Robitussin Dm Liquid Cup) 10 ml Q4H PRN PO Productive cough Last administered on 11/20/16 17:55; Admin Dose 10 ML; Start 11/19/16 at 22:30 Famotidine 20 mg 20 mg DAILY PO Last administered on 11/23/16 09:07; Admin Dose 20 MG; Start 11/22/16 at 09:00 Ceftriaxone Sodium (Rocephin) 50 ml @ 100 mls/hr Q24H IVPB Last administered on 11/23/16 13:57; Admin Dose 100 MLS/HR; Start 11/21/16 at 14:30 Olanzapine (Zyprexa) 2.5 mg DAILY PO Last administered on 11/23/16 09:07; Admin Dose 2.5 MG; Start 11/22/16 at 15:00 Megestrol Acetate (Megace) 40 mg DAILY PO Last administered on 11/23/16 09:06 ; Admin Dose 40 MG; Start 11/22/16 at 14:00 ANDREA SIMMS MD November 23, 2016 15:33
[2016-11-23 20:35] VITALS: BP 138/88; RESP 18
[2016-11-23] MEDS: DONEPEZIL 5 MG TAB PO SCH (21:17)
[2016-11-24] MEDS: AMPICILLIN 1 GM/NS (PMX) 50 ML IVPB SCH ×4 (00:08→11:02)
[2016-11-24] MEDS: SOD CHLORIDE 0.9% 1,000 ML IV SCH ×2 (00:08→16:40)
[2016-11-24 08:02] VITALS: BP 148/80; RESP 18
[2016-11-24] MEDS: FAMOTIDINE 20 MG TAB PO SCH (08:06)
[2016-11-24] MEDS: MEGESTROL 40 MG TAB PO SCH (08:06)
[2016-11-24] MEDS: OLANZAPINE 2.5 MG TAB PO SCH (08:07)
[2016-11-24] MEDS: NIFEdipine (XL) 30 MG TAB PO SCH ×2 (08:07→20:20)
[2016-11-24] MEDS: ENOXAPARIN 40 MG/0.4 ML SYG SC SCH (08:10)
[2016-11-24] MEDS: TOBRAMYCIN/0.25NS 300 MG/5 ML INHAL NEB SCH ×3 (09:00→22:12)
--- NOTE | 2016-11-24 10:37 | RADRPT ---
PROCEDURE: US upper extremity Venous. CLINICAL INDICATION: Right arm edema TECHNIQUE: Multiple sonographic images of the right upper extremity venous system was obtained uti lizing grayscale, color-flow, compressive sonography and doppler imaging with augmentation. The yuri ges were reviewed on a PACS workstation. COMPARISON: None. FINDINGS: There is normal compressibility and flow within the right internal jugular vein, subclavian vein, ax illary vein, brachial, basilic, cephalic, radial and ulnar veins. RPTAT: AA IMPRESSION: No sonographic evidence for venous thrombosis. .Jhonny Colon MD, Date Time Electronically viewed and signed by .Jhonny Colon MD, on 11/24/2016 10:36 .S/
--- NOTE | 2016-11-24 13:59 | CONS ---
Date/Time of Note Date/Time of Note DATE: 11/24/16 TIME: 13:57 Assessment/Plan Assessment/Plan Chief Complaint/Hosp Course SUBJECTIVE: No acute changes. The patient is awake, confused. No fevers. ANTIMICROBIALS: Rocephin. PHYSICAL EXAMINATION: GENERAL: This is a fragile, chronically ill-appearing, elderly man who is in no distress. HEENT: Head atraumatic, normocephalic. Sclerae anicteric. Buccal mucosa dry. NECK: Supple, trachea midline. CHEST: Rise symmetrical. Breath sounds diminished to bases. HEART: S1, S2. ABDOMEN: Soft. Bowel tones present. ASSESSMENT: 1. Sepsis with acute encephalopathy and tachycardia on admission. 2. Alpha hemolytic strep bacteremia on admission with repeat blood cultures negative. 3. Possible pneumonia versus acute bronchitis. 4. Dementia. 5. DNR status. PLAN: The patient is clinically unchanged. Continue Rocephin for 6 more days, anti-aspiration measures. DW staff Problems: Consultation Date/Type/Reason Admit Date/Time November 16, 2016 at 19:17 Type of Consultation: ID Exam/Review of Systems Vital Signs Vitals Vital Signs Date Time Temp Pulse Resp B/P Pulse Ox O2 Delivery O2 Flow Rate FiO2 11/24/16 09:00 83 18 97 21 11/24/16 08:02 97.9 148/80 11/21/16 09:19 Room Air Intake and Output 11/23/16 11/23/16 11/24/16 15:00 23:00 07:00 Intake Total 100 ml 1170 ml 870 ml Output Total 200 ml 300 ml Balance 100 ml 970 ml 570 ml Medications Medications Current Medications Sodium Chloride (NS) 1,000 ml @ 70 mls/hr [id number] IV Last administered on 11/24 00:08; Admin Dose 70 MLS/HR; Start 11/16/16 at 22:56 Ondansetron HCl (Zofran Inj) 4 mg Q6H PRN IV NAUSEA AND/OR VOMITING; Start at 23:00 Acetaminophen (Tylenol Supp) 650 mg Q6H PRN [place] PAIN LEVEL 1-3 OR FEVER; Start 11/16/16 at 23:00 Enoxaparin Sodium (Lovenox) 40 mg DAILY SC Last administered on 11/24/16 08:10 ; Admin Dose 40 MG; Start 11/17/16 at 09:00 Hydralazine HCl (Apresoline) 10 mg Q6H PRN IV SBP>160; Start 11/17/16 at 10:00 Nifedipine (Procardia Xl) 30 mg BID PO Last administered on 11/24/16 08:07; Admin Dose 30 MG; Start 11/17/16 at 21:00 Donepezil HCl (Aricept) 5 mg QHS PO Last administered on 11/23/16 21:17; Admin Dose 5 MG; Start 11/18/16 at 21:00 Haloperidol 2 mg 2 mg Q6H PRN IM AGitation; Start 11/18/16 at 17:30 Ampicillin (Ampicillin 1 Gm/ NS (Pmx)) 50 ml @ 100 mls/hr Q6 IVPB Last administered on 11/24/16 11:02; Admin Dose 100 MLS/HR; Start 11/19/16 at 14:00 Guaifenesin/ Dextromethorphan (Robitussin Dm Liquid Cup) 10 ml Q4H PRN PO Productive cough Last administered on 11/20/16 17:55; Admin Dose 10 ML; Start 11/19/16 at 22:30 Famotidine 20 mg 20 mg DAILY PO Last administered on 11/24/16 08:06; Admin Dose 20 MG; Start 11/22/16 at 09:00 Ceftriaxone Sodium (Rocephin) 50 ml @ 100 mls/hr Q24H IVPB Last administered on 11/23/16 13:57; Admin Dose 100 MLS/HR; Start 11/21/16 at 14:30 Olanzapine (Zyprexa) 2.5 mg DAILY PO Last administered on 11/24/16 08:07; Admin Dose 2.5 MG; Start 11/22/16 at 15:00 Megestrol Acetate (Megace) 40 mg DAILY PO Last administered on 11/24/16 08:06 ; Admin Dose 40 MG; Start 11/22/16 at 14:00 LEATHA HAYNES NP November 24, 2016 13:59
[2016-11-24] MEDS: CEFTRIAXONE 1 GM/50 ML (PMX) 50 ML IVPB SCH (14:47)
--- NOTE | 2016-11-24 14:50 | PN ---
Date/Time of Note Date/Time of Note DATE: 11/24/16 TIME: 14:48 Assessment/Plan VTE Prophylaxis VTE Prophylaxis Intervention: LMWH Lines/Catheters IV Catheter Type (from Nrs): Peripheral IV Urinary Cath still in place: No Assessment/Plan Assessment/Plan 1. Hypertension. controlled 2. 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 Alzheimer's disease. Chronic 4. Normocytic normochromic anemia.chronic, mild 5. Deep venous thrombosis prophylaxis with subcutaneous Lovenox. Subjective 24 Hr Interval Summary Free Text/Dictation no distress, demented Exam/Review of Systems Vital Signs Vitals Vital Signs Date Time Temp Pulse Resp B/P Pulse Ox O2 Delivery O2 Flow Rate FiO2 11/24/16 09:00 83 18 97 21 11/24/16 08:02 97.9 148/80 11/21/16 09:19 Room Air Intake and Output 11/23/16 11/23/16 11/24/16 15:00 23:00 07:00 Intake Total 100 ml 1170 ml 870 ml Output Total 200 ml 300 ml Balance 100 ml 970 ml 570 ml Exam Constitutional: alert, well developed Head: atraumatic, normocephalic Eyes: EOMI, PERRL, nl conjunctiva, nl lids ENMT: nl external ears & nose, nl lips & teeth, nl nasal mucosa & septum Neck: non-tender, supple Respiratory: clear to auscultation, normal air movement, No congested cough, No crackles/rales, No diminished breath sounds, No intercostal retraction, No labored breathing, No other, No respirations, No tactile fremitus, No wheezing Cardiovascular: nl pulses, regular rate and rhythm, No S3, No S4, No bruits, No diastolic murmur, No edema, No gallop, No irregular rhythm, No jugular venous distention (JVD), No murmurs/extra sounds, No other, No rub, No systolic murmur Gastrointestinal: nl liver, spleen, non-tender, soft, No ascites, No bowel sounds, No distended, No firm, No hepatomegaly, No mass , No other, No rebound or guarding, No splenomegaly, No surgical scars, No tender Musculoskeletal: nl extremities to inspection Extremities: normal pulses, No calf tenderness, No clubbing, No cyanosis, No edema, No other, No palpable cord, No pitting pedal edema, No tenderness Neurological: CONTRACTING SPECIALIST II-XII intact, confused, nl speech Skin: nl turgor Lymph: nl lymph nodes Medications Medications Current Medications Sodium Chloride (NS) 1,000 ml @ 70 mls/hr [id number] IV Last administered on 11/24 00:08; Admin Dose 70 MLS/HR; Start 11/16/16 at 22:56 Ondansetron HCl (Zofran Inj) 4 mg Q6H PRN IV NAUSEA AND/OR VOMITING; Start at 23:00 Acetaminophen (Tylenol Supp) 650 mg Q6H PRN [place] PAIN LEVEL 1-3 OR FEVER; Start 11/16/16 at 23:00 Enoxaparin Sodium (Lovenox) 40 mg DAILY SC Last administered on 11/24/16 08:10 ; Admin Dose 40 MG; Start 11/17/16 at 09:00 Hydralazine HCl (Apresoline) 10 mg Q6H PRN IV SBP>160; Start 11/17/16 at 10:00 Nifedipine (Procardia Xl) 30 mg BID PO Last administered on 11/24/16 08:07; Admin Dose 30 MG; Start 11/17/16 at 21:00 Donepezil HCl (Aricept) 5 mg QHS PO Last administered on 11/23/16 21:17; Admin Dose 5 MG; Start 11/18/16 at 21:00 Haloperidol (Haldol) 2 mg Q6H PRN IM AGitation; Start 11/18/16 at 17:30 Guaifenesin/ Dextromethorphan (Robitussin Dm Liquid Cup) 10 ml Q4H PRN PO Productive cough Last administered on 11/20/16 17:55; Admin Dose 10 ML; Start 11/19/16 at 22:30 Famotidine 20 mg 20 mg DAILY PO Last administered on 11/24/16 08:06; Admin Dose 20 MG; Start 11/22/16 at 09:00 Ceftriaxone Sodium (Rocephin) 50 ml @ 100 mls/hr Q24H IVPB Last administered on 11/23/16 13:57; Admin Dose 100 MLS/HR; Start 11/21/16 at 14:30 Olanzapine (Zyprexa) 2.5 mg DAILY PO Last administered on 11/24/16 08:07; Admin Dose 2.5 MG; Start 11/22/16 at 15:00 Megestrol Acetate (Megace) 40 mg DAILY PO Last administered on 11/24/16 08:06 ; Admin Dose 40 MG; Start 11/22/16 at 14:00 ANDREA SIMMS MD November 24, 2016 14:50
[2016-11-24 20:00] VITALS: BP 129/72; RESP 18
[2016-11-24] MEDS: DONEPEZIL 5 MG TAB PO SCH (20:20)
[2016-11-25] MEDS: SOD CHLORIDE 0.9% 1,000 ML IV SCH (00:56)
[2016-11-25 05:14] LABS: ADD SCAN DIFF NO
[2016-11-25 05:18] LABS: BASOPHIL # 0.1 10^3/ul (0.0-0.1); BASOPHILS % 0.6 % (0.0-2.0); EOSINOPHILS # 0.2 10^3/ul (0.0-0.5); EOSINOPHILS % 2.1 % (0.0-7.0); HEMATOCRIT 35.3 % (42.0-52.0); HEMOGLOBIN 11.6 g/dl (14.0-18.0); LYMPHOCYTES # 1.7 10^3/ul (0.8-2.9); LYMPHOCYTES % 19.1 % (15.0-51.0); MEAN CORPUSCULAR HEMOGLOBIN 30.4 pg (29.0-33.0); MEAN CORPUSCULAR HGB CONC 32.9 g/dl (32.0-37.0); MEAN CORPUSCULAR VOLUME 92.7 fl (82.0-101.0); MEAN PLATELET VOLUME 11.3 fl (7.4-10.4); MONOCYTE # 0.9 10^3/ul (0.3-0.9); MONOCYTES % 10.1 % (0.0-11.0); NEUTROPHILS % 67.7 % (39.0-77.0); PLATELET COUNT 268 10^3/UL (140-415); RED BLOOD COUNT 3.81 10^6/ul (4.70-6.10); RED CELL DISTRIBUTION WIDTH 13.7 % (11.5-14.5); WHITE BLOOD COUNT 8.9 10^3/ul (4.8-10.8)
[2016-11-25 05:45] LABS: CREATININE 0.58 mg/dl (0.61-1.24)
[2016-11-25 05:46] LABS: CALCIUM 9.5 mg/dl (8.4-10.2)
[2016-11-25 07:39] VITALS: BP 163/80; RESP 16
[2016-11-25] MEDS: TOBRAMYCIN/0.25NS 300 MG/5 ML INHAL NEB SCH (07:52)
[2016-11-25] MEDS: FAMOTIDINE 20 MG TAB PO SCH (09:04)
[2016-11-25] MEDS: MEGESTROL 40 MG TAB PO SCH (09:05)
[2016-11-25] MEDS: OLANZAPINE 2.5 MG TAB PO SCH (09:05)
[2016-11-25] MEDS: NIFEdipine (XL) 30 MG TAB PO SCH (09:05)
[2016-11-25] MEDS: ENOXAPARIN 40 MG/0.4 ML SYG SC SCH (09:06)
--- NOTE | 2016-11-25 14:17 | CONS ---
Date/Time of Note Date/Time of Note DATE: 11/25/16 TIME: 14:16 Assessment/Plan Assessment/Plan Chief Complaint/Hosp Course SUBJECTIVE: No acute changes. The patient is alert, looks comfortable, no fevers. ANTIMICROBIALS: Rocephin. PHYSICAL EXAMINATION: GENERAL: This is a fragile, chronically ill-appearing, elderly man who is in no distress. HEENT: Head atraumatic, normocephalic. Sclerae anicteric. Buccal mucosa dry. NECK: Supple, trachea midline. CHEST: Rise symmetrical. Breath sounds diminished to bases. HEART: S1, S2. ABDOMEN: Soft. Bowel tones present. ASSESSMENT: 1. Sepsis with acute encephalopathy and tachycardia on admission. 2. Alpha hemolytic strep bacteremia on admission with repeat blood cultures negative. 3. Possible pneumonia versus acute bronchitis. 4. Dementia. 5. DNR status. PLAN: The patient is clinically improving. Continue Rocephin for 5 more days. DW staff Problems: Consultation Date/Type/Reason Admit Date/Time November 16, 2016 at 19:17 Type of Consultation: ID Exam/Review of Systems Vital Signs Vitals Vital Signs Date Time Temp Pulse Resp B/P Pulse Ox O2 Delivery O2 Flow Rate FiO2 11/25/16 07:52 73 20 94 21 11/25/16 07:39 98.5 163/80 11/21/16 09:19 Room Air Intake and Output 11/24/16 11/24/16 11/25/16 15:00 23:00 07:00 Intake Total 280 ml 1540 ml 630 ml Balance 280 ml 1540 ml 630 ml Results Result Diagram: 11/25/16 0450 11/25/16 0450 Results 24 hrs Laboratory Tests Test 11/25/16 04:50 White Blood Count 8.9 Red Blood Count 3.81 L Hemoglobin 11.6 L Hematocrit 35.3 L Mean Corpuscular Volume 92.7 Mean Corpuscular Hemoglobin 30.4 Mean Corpuscular Hemoglobin Concent 32.9 Red Cell Distribution Width 13.7 Platelet Count 268 Mean Platelet Volume 11.3 H Neutrophils % 67.7 Lymphocytes % 19.1 Monocytes % 10.1 Eosinophils % 2.1 Basophils % 0.6 Nucleated Red Blood Cells % 0.0 Neutrophils # 6.0 Lymphocytes # 1.7 Monocytes # 0.9 Eosinophils # 0.2 Basophils # 0.1 Nucleated Red Blood Cells # 0.0 Sodium Level 142 Potassium Level 4.0 Chloride Level 109 Carbon Dioxide Level 23 Anion Gap 14 Blood Urea Nitrogen 28 H Creatinine 0.58 L Glucose Level 91 Calcium Level 9.5 Medications Medications Current Medications Sodium Chloride (NS) 1,000 ml @ 70 mls/hr [id number] IV Last administered on 11/25 00:56; Admin Dose 70 MLS/HR; Start 11/16/16 at 22:56 Ondansetron HCl (Zofran Inj) 4 mg Q6H PRN IV NAUSEA AND/OR VOMITING; Start at 23:00 Acetaminophen (Tylenol Supp) 650 mg Q6H PRN [place] PAIN LEVEL 1-3 OR FEVER; Start 11/16/16 at 23:00 Enoxaparin Sodium (Lovenox) 40 mg DAILY SC Last administered on 11/25/16 09:06 ; Admin Dose 40 MG; Start 11/17/16 at 09:00 Hydralazine HCl (Apresoline) 10 mg Q6H PRN IV SBP>160; Start 11/17/16 at 10:00 Nifedipine (Procardia Xl) 30 mg BID PO Last administered on 11/25/16 09:05; Admin Dose 30 MG; Start 11/17/16 at 21:00 Donepezil HCl (Aricept) 5 mg QHS PO Last administered on 11/24/16 20:20; Admin Dose 5 MG; Start 11/18/16 at 21:00 Haloperidol (Haldol) 2 mg Q6H PRN IM AGitation; Start 11/18/16 at 17:30 Guaifenesin/ Dextromethorphan (Robitussin Dm Liquid Cup) 10 ml Q4H PRN PO Productive cough Last administered on 11/20/16 17:55; Admin Dose 10 ML; Start 11/19/16 at 22:30 Famotidine 20 mg 20 mg DAILY PO Last administered on 11/25/16 09:04; Admin Dose 20 MG; Start 11/22/16 at 09:00 Ceftriaxone Sodium (Rocephin) 50 ml @ 100 mls/hr Q24H IVPB Last administered on 11/24/16 14:47; Admin Dose 100 MLS/HR; Start 11/21/16 at 14:30 Olanzapine (Zyprexa) 2.5 mg DAILY PO Last administered on 11/25/16 09:05; Admin Dose 2.5 MG; Start 11/22/16 at 15:00 Megestrol Acetate (Megace) 40 mg DAILY PO Last administered on 11/25/16 09:05 ; Admin Dose 40 MG; Start 11/22/16 at 14:00 LEATHA HAYNES NP November 25, 2016 14:17
[2016-11-25] MEDS ORDERED: DONE5TAB32 PO (14:55)
[2016-11-25] MEDS ORDERED: OLAN2.5T4 PO (14:55)
[2016-11-25] MEDS ORDERED: NIFE30TA2 PO (14:55)
--- NOTE | 2016-11-25 14:59 | DS ---
Date/Time of Note Date/Time of Note DATE: 11/25/16 TIME: 14:56 Discharge Summary Admission/Discharge Info Admit Date/Time November 16, 2016 at 19:17 Discharge Date/Time Final Diagnosis 1. Hypertension. controlled 2. 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 Alzheimer's disease. Chronic 4. Normocytic normochromic anemia.chronic, mild Patient Condition: Stable Hx of Present Illness This 86-year-old male presents to the emergency room by ambulance for increased weakness, decreased appetite, and advanced dementia. History is unobtainable from the patient secondary to his clinical condition. According to his who is at bedside this patient has severe dementia and she has been trying to secure the patient at home. She states that the patient has been declining cognitively and has had recent hallucinations. She states that she is no longer able to take care of him and she has no support system at home to help her out. The patient's is very pleasant elderly female who is concerned for her 's well-being and brought the patient in for evaluation. Allergies: Aspirin Hospital Course patient was agitated and confused. He was started on zyprexa that significantly improved his behavior. He is also started on aricept for dementia. Patient has hypertension that he is treated with procardia. Blood pressure has been stable. Home Meds Active Scripts Olanzapine* (Zyprexa*) 2.5 Mg Tablet, 2.5 MG PO DAILY for 30 Days, TAB Prov:ANDREA SIMMS MD 11/25/16 Nifedipine (Procardia Xl) 30 Mg Tab.er.24, 30 MG PO BID for 30 Days, #30 TAB Prov:ANDREA SIMMS MD 11/25/16 Donepezil* (Aricept*) 5 Mg Tablet, 5 MG PO QHS for 30 Days, TAB Prov:ANDREA SIMMS MD 11/25/16 Follow-up Plan PCP in one week Primary Care Provider Berto Pedraza Pending Labs Laboratory Tests Test 11/25/16 04:50 White Blood Count 8.910^3/ul (4.8-10.8) Red Blood Count 3.8110^6/ul (4.70-6.10) Hemoglobin 11.6g/dl (14.0-18.0) Hematocrit 35.3% (42.0-52.0) Mean Corpuscular Volume 92.7fl (82.0-101.0) Mean Corpuscular Hemoglobin 30.4pg (29.0-33.0) Mean Corpuscular Hemoglobin Concent 32.9g/dl (32.0-37.0) Red Cell Distribution Width 13.7% (11.5-14.5) Platelet Count 46632^3/UL (140-415) Mean Platelet Volume 11.3fl (7.4-10.4) Neutrophils % 67.7% (39.0-77.0) Lymphocytes % 19.1% (15.0-51.0) Monocytes % 10.1% (0.0-11.0) Eosinophils % 2.1% (0.0-7.0) Basophils % 0.6% (0.0-2.0) Nucleated Red Blood Cells % 0.0/100WBC (0.0-0.0) Neutrophils # 6.010^3/ul (1.6-7.5) Lymphocytes # 1.710^3/ul (0.8-2.9) Monocytes # 0.910^3/ul (0.3-0.9) Eosinophils # 0.210^3/ul (0.0-0.5) Basophils # 0.110^3/ul (0.0-0.1) Nucleated Red Blood Cells # 0.010^3/ul (0.0-0.0) Sodium Level 142mmol/L (135-144) Potassium Level 4.0mmol/L (3.5-5.1) Chloride Level 109mmol/L (97-110) Carbon Dioxide Level 23mmol/L (21-31) Anion Gap 14 (8-16) Blood Urea Nitrogen 28mg/dl (7-20) Creatinine 0.58mg/dl (0.61-1.24) Glucose Level 91mg/dl (70-220) Calcium Level 9.5mg/dl (8.4-10.2) ANDREA SIMMS MD November 25, 2016 14:59
[2016-11-25] MEDS: CEFTRIAXONE 1 GM/50 ML (PMX) 50 ML IVPB SCH (15:24)
--- NOTE | 2016-12-01 09:45 | PQ ---
Date/Time of Note Date/Time of Note DATE: 12/01/16 TIME: 09:39 Physician Query Documentation Clarification Dear Dr. Nam, A review of the medical record found a need for documentation clarification. 86-year-old male presents to the emergency room by ambulance for increased weakness, decreased appetite, and advanced dementia. ID- Cons --Sepsis with acute encephalopathy and tachycardia on admission. 3. Possible pneumonia versus acute bronchitis. WBC --9.9--> 12.2 (11/18) BC + ALPHA HEMOLYTIC STREP SPP Meds: Vancomycin IV + Ampicillin IV + Ceftriaxone IV Please clarify if you concur with ID's clinical impression. To facilitate accurate and complete coding, please gia ( x ) the suspected diagnosis that apply: ( ) Sepsis present on admission ( ) Sepsis not present on admission , resolved ( ) Bacteremia without sepsis ( ) Others Please provide your response by clicking edit document, making your choice ( x ), click ok/save and finally click sign. You may also document your response on your progress notes. Thank you for your time. Sincerely, Jasen Hernandez RN, BSN, CCS, CCDS Clinical Requirements Manager Health Information Management, [facility] and Coding Services [phone] Room # 1525 - [address]~ [id number] JASEN HERNANDEZ Dec 01, 2016 09:45
== END 2016-11-25 17:53 | DRG 884 ==
LOC: E/R 17:35 → PP2 19:17
PROVIDERS: ADMIT Family Medicine; ATTEND Family Medicine
DX: F02.81 Dementia in other diseases classified elsewhere, unspecified severity, with behavioral disturbance (principal); G30.9 Alzheimer's disease, unspecified; D63.8 Anemia in other chronic diseases classified elsewhere; R62.7 Adult failure to thrive; I10 Essential (primary) hypertension; Z66 Do not resuscitate; Z87.891 Personal history of nicotine dependence
CPT/HCPCS: 36415; 71010; 80048; 80053; 80061; 81003; 82728; 83540; 83605; 83735; 84100; 84484; 85025; 85610; 85730; 87040; 87086; 93005; 93971; 94640; 94664; J0696; J1630; J1650; J3370; J7030; J7040; J7050